=== PATIENT | female | born 1995 | race Caucasian/White ===

== ENCOUNTER → 2020-04-16 15:49 | Outpatient (CLI) | payer OTHER, SELFPAY ==
[2020-04-16 16:10] LABS: Absolute Lymphocyte Count 1.89 X10^3/uL (0.83-4.51); Absolute Neutrophil Count 7.1 X10^3/uL (2.0-7.7); Basophil# 0.05 X10^3/uL; Basophil% 0.5 % (0-1); Eosinophil# 0.03 X10^3/uL; Eosinophils% 0.3 % (0-5); Hematocrit 39.8 % (37-47); Hemoglobin 13.4 g/dL (12.0-15.0); Lymphocyte # 1.89 X10^3/ul (4.0); Lymphocyte % 19.5 % (19-41); Mean Corp Hgb Conc 33.7 g/dL (32-36); Mean Corpuscular Hgb 30.5 pg (27.0-32.0); Mean Corpuscular Volume 90.7 fL (81-99); Mean Platelet Vol. 9.6 fl (6.2-12.0); Monocyte# 0.62 X10^3/uL; Monocyte% 6.4 % (0-10); NRBC Flagged by Analyzer 0 % (0-5); Neutrophil # 7.08 X10^3/uL (2.7-7.7); Platelet Count 337 K/mm3 (150-450); RBC Distribution Width CV 11.9 % (11.6-14.6); RBC Distribution Width SD 39.6 fl (35.1-43.9); Red Blood Count 4.39 M/mm3 (4.2-5.4); White Blood Count 9.7 K/mm3 (4.4-11.0)
[2020-04-17 09:16] LABS: HIV - WCH Non-Reactive (Nonreactive); Hepatitis B Surface Antigen Non-Reactive (Nonreactive); Hepatitis C Antibody Non-Reactive (Nonreactive); Rubella IgG Equiv (Nonreactive); Syphilis Antibodies Non-reactive
[2020-04-20 20:07] LABS: Chlamydia By Nucleic Acid AMP Negative (Negative)
[2020-04-20 20:58] LABS: Gonococcus By Nucleic Acid AMP Negative (Negative)
== END ==
PROVIDERS: Visit Provider Obstetrics & Gynecology
DX: Z34.81 Encounter for supervision of other normal pregnancy, first trimester (principal); Z11.3 Encounter for screening for infections with a predominantly sexual mode of transmission
CPT/HCPCS: 36415; 85025; 86703; 86762; 86803; 87086; 87088; 87340; 87491; 87591

== ENCOUNTER → 2020-08-18 09:11 | Outpatient (CLI) | payer OTHER, MEDICAID, SELFPAY ==
[2020-08-18 11:13] LABS: Hematocrit 34.5 % (37-47); Hemoglobin 11.6 g/dL (12.0-15.0); Mean Corp Hgb Conc 33.6 g/dL (32-36); Mean Corpuscular Hgb 31.2 pg (27.0-32.0); Mean Corpuscular Volume 92.7 fL (81-99); Mean Platelet Vol. 10.5 fl (6.2-12.0); Platelet Count 329 K/mm3 (150-450); Red Blood Count 3.72 M/mm3 (4.2-5.4); White Blood Count 11.2 K/mm3 (4.4-11.0)
[2020-08-18 11:19] LABS: Glucose Challenge Gest 1H 50g 110 mg/dL (70-140)
== END ==
PROVIDERS: Visit Provider Obstetrics & Gynecology
DX: Z34.82 Encounter for supervision of other normal pregnancy, second trimester (principal)
CPT/HCPCS: 36415; 82950; 85027

== ENCOUNTER → 2020-11-09 | Outpatient (CLI) | payer OTHER, MEDICAID, SELFPAY | END | disposition home or self-care (01) | LOC: LABSPEC 16:19 | PROVIDERS: Visit Provider Obstetrics & Gynecology | DX: Z36.85 Encounter for antenatal screening for Streptococcus B (principal) | CPT/HCPCS: 87081 ==

== ENCOUNTER 2020-11-27 08:55 | Inpatient (IN) | payer OTHER, MEDICAID, SELFPAY ==
[2020-11-27] VITALS (32 sets, daily range): BP systolic 97–136; BP diastolic 50–76; PULSE 81–127; TEMP 36.4–37.5; O2SAT 97–100; BMI 25.4
[2020-11-27 08:45] LABS: ROM Internal Control Test YES-OK TO RESULT pt. (Internal QC)
[2020-11-27 08:48] LABS: ROM Patient Test POSITIVE (Negative)
[2020-11-27 09:19] LABS: Absolute Lymphocyte Count 1.95 X10^3/uL (0.83-4.51); Absolute Neutrophil Count 6.9 X10^3/uL (2.0-7.7); Basophil# 0.06 X10^3/uL; Basophil% 0.6 % (0-1); Eosinophil# 0.11 X10^3/uL; Eosinophils% 1.1 % (0-5); Hematocrit 32.8 % (37-47); Hemoglobin 10.6 g/dL (12.0-15.0); Lymphocyte # 1.95 X10^3/ul (0.83-4.51); Lymphocyte % 19.7 % (19-41); Mean Corp Hgb Conc 32.3 g/dL (32-36); Mean Corpuscular Hgb 28.6 pg (27.0-32.0); Mean Corpuscular Volume 88.6 fL (81-99); Mean Platelet Vol. 10.2 fl (6.2-12.0); Monocyte# 0.68 X10^3/uL; Monocyte% 6.9 % (0-10); NRBC Flagged by Analyzer 0 % (0-5); Neutrophil # 6.93 X10^3/uL (2.7-7.7); Neutrophil % 69.8 % (47-70); Platelet Count 380 K/mm3 (150-450); RBC Distribution Width CV 12.9 % (11.6-14.6); White Blood Count 9.9 K/mm3 (4.4-11.0)
[2020-11-27] MEDS: Lactated Ringers 1,000 ML 50 ML IV (11:27)
[2020-11-27] MEDS: Lactated Ringers 500 ML 999 ML IV (12:03)
[2020-11-27] MEDS: Oxytocin 30 units/NS 500 ml 30 UNITS/500 ML IV.SOLN IV (12:05)
--- NOTE | 2020-11-27 12:53 | HP.PCM.OB_ITS ---
HPI - General General Date of Admission: 11/27/20 HPI Narrative 25-year-old G1, P0 at 38/5 weeks, FRANCO 12/06/2020 by LMP, admitted with spontaneous rupture of membranes. Rupture membranes around 06 30 this morning. Reports irregular contractions that are mild. Denies vaginal bleeding, h eadache, vision changes, chest pain, shortness of breath, nausea or vomiting, fevers or chills. Reports movement. complicated by: Rubella equivocal Maternal Data Information Final FRANCO: 12/06/20 Final FRANCO Source: LMP PFSH PFSH Home Medications [id number] [] 1 tab PO DAILY 11/27/20 [History Last Taken Unknown] Allergy/AdvReac Type Severity Reaction Status Date / Time No Known Allergies Allergy Verified 11/27/20 08:46 Social History Smoking Status: Former smoker History Elective abortions Hx Para 0 Spontaneous abortions Hx # Term Pregnancies Ectopic pregnancies Hx # Pregnancies Multiple births # of living children NST FHR Rate Baby A Baseline: 145 Variability:: Moderate Accelerations:: 15 x 15 Decelerations:: None NST Reactive:: Yes FHR Category:: Category I ROS Constitutional Constitutional: Reports systems reviewed and no addt'l complaints, except as documented Eyes Eyes: Reports systems reviewed and no addt'l complaints, except as documented ENT HEENT: Reports systems reviewed and no addt'l complaints, except as documented Cardiovascular Cardiovascular: Reports systems reviewed and no addt'l complaints, except as documented Respiratory/Chest Respiratory/Chest: Reports systems reviewed and no addt'l complaints, except as documented Gastrointestinal Gastrointestinal: Reports systems reviewed and no addt'l complaints, except as documented Genitourinary Genitourinary: Reports systems reviewed and no addt'l complaints, except as documented Musculoskeletal Musculoskeletal: Reports systems reviewed and no addt'l complaints, except as documented Integumentary Integumentary: Reports systems reviewed and no addt'l complaints, except as documented Neurologic Neurologic: Reports systems reviewed and no addt'l complaints, except as documented Psychiatric Psychiatric: Reports systems reviewed and no addt'l complaints, except as documented Endocrine Endocrinology: Reports systems reviewed and no addt'l complaints, except as documented Hematologic/Lymphatic Hematologic/Lymphatic: Reports systems reviewed and no addt'l complaints, except as documented Allergic/Immunologic Allergic/Immunologic: Reports systems reviewed and no addt'l complaints, except as documented Vital Signs Vital Signs Vital Signs: 11/27/20 08:30 11/27/20 09:33 11/27/20 10:35 Temperature 98.2 F 98.1 F Temperature Source Temporal Temporal Pulse Rate 87 99 96 Blood Pressure 116/67 123/59 H 98/54 L BP Systolic 116 123 98 BP Diastolic 67 59 54 Pulse Ox 97 11/27/20 11:34 11/27/20 12:30 11/27/20 12:47 Temperature 98.2 F Temperature Source Temporal Pulse Rate 81 81 98 Blood Pressure 101/55 L 113/63 BP Systolic 101 113 BP Diastolic 55 63 Pulse Ox 98 100 Weight Weight: 71.7 kg Body Mass Index (BMI) 25.4 Physical Exam Const alert, oriented x3 and no apparent distress HEENT normocephalic Head and Scalp: atraumatic Neck full ROM Resp normal respiratory effort and clear to auscultation bilaterally Cardio regular rate and regular rhythm GI normal to inspection, nondistended, normoactive bowel sounds GI Narrative: Gravid Narrative: 3 cm per RN Extremity normal to inspection Skin no rashes or lesions noted Neuro no focal motor deficits and no sensory deficits noted Psych mental status grossly normal Labs Labs Labs: Blood Type A POSITIVE Antibody Screen NEGATIVE Hct 32.8 % (37-47) L Hgb 10.6 g/dL (12.0-15.0) L Syphilis Total Ab Non-reactive Rubella IgG Antibody Equiv (Nonreactive) Hep Bs Antigen Non-Reactive (Nonreactive) Neisseria gonorrhoeae DNA (LUIS ALBERTO) Negative (Negative) HIV 1&2 Antibody Non-Reactive (Nonreactive) Glucose 1 Hr 50 gm 110 mg/dL (70-140) Assessment & Plan (1) Spontaneous rupture of amniotic membranes: PLAN: 25-year-old at 38/5 weeks admitted for spontaneous rupture of membranes. Expectant vaginal delivery. Add Pitocin if no cervical change. GBS negative.
[2020-11-27] MEDS: fentaNYL-bupivacaine (epidural) 100 ML BAG EPIDURAL ×2 (13:03→17:31)
[2020-11-27] MEDS: Lactated Ringers 1,000 ML 200 ML IV (17:31)
[2020-11-27] MEDS: Oxytocin 30 units/NS 500 ml 30 UNITS/500 ML IV.SOLN 334 UNITS IV (18:53)
--- NOTE | 2020-11-27 19:00 | EX.PCM.OBRPT ---
Maternal Data Information Final FRANCO: 12/06/20 Final FRANCO Source: LMP Vaginal Delivery Maternal Presentation Maternal Presentation: Spontaneous Rupture of Membranes Operative Information Date of Procedure: 11/27/20 Pre-Operative Diagnosis: Parrish intrauterine , spontaneous rupture of membranes Post-Operative Diagnosis: Parrish intrauterine , spontaneous rupture of membranes, spontaneous vaginal delivery Surgery / Procedure Performed: Spontaneous Vaginal Delivery Type of Anesthesia: Epidural Findings Description of Procedure: Spontaneous vaginal delivery of viable infant female. 1 nuchal cord, loose, reduced. Baby handed to mom. Cord clamped and cut. Spontaneous delivery of placenta. No lacerations. EBL 300 cc Infant A Gender: Female (1 minute): 8 (5 minute): 9 Complication Complications: None
[2020-11-27] MEDS: Ibuprofen 600 MG Tablet PO (20:15)
[2020-11-28] VITALS (8 sets, daily range): BP systolic 98–110; BP diastolic 52–69; PULSE 82–101; RESP 16–18; TEMP 36.6–36.8
--- NOTE | 2020-11-28 09:16 | PN.OBGYN_ITS ---
Subjective Subjective day 1. Lochia minimal. Having some discomfort which is tolerable. Formula feeding. Objective Data Objective Data Vital Signs: Vital Signs Temp Pulse Resp BP Pulse Ox 97.9 F 85 16 101/64 100 11/28/20 07:54 11/28/20 07:54 11/28/20 07:54 11/28/20 07:54 11/27/20 17:03 Oxygen Delivery Method Room Air Weight: 71.7 kg Body Mass Index (BMI) 25.4 Intake & Output: Intake and Output for Last 24 Hours 11/26/20 11/27/20 11/28/20 23:59 23:59 23:59 Intake Total 2280.10 / 2280.10 Output Total 900 / 900 600 / 600 Balance 1380.10 / 1380.10 -600 / -600 Lab / Micro Data Result Diagrams: 11/27/20 09:00 Labs: Laboratory Results - last 24 hr 11/27/20 09:00: WBC 9.9, RBC 3.70 L, Hgb 10.6 L, Hct 32.8 L, MCV 88.6, MCH 28.6, MCHC 32.3, RDW Std Deviation 42.0, RDW Coeff of Susan 12.9, Plt Count 380, MPV 10.2, Immature Gran % (Auto) 1.900 H, Neut % (Auto) 69.8, Lymph % (Auto) 19.7, [place] % (Auto) 6.9, Eos % (Auto) 1.1, Baso % (Auto) 0.6, Absolute Neuts (auto) 6.9, Absolute Lymphs (auto) 1.95, Nucleated RBC % 0 11/27/20 09:00: Blood Type A POSITIVE, Antibody Screen NEGATIVE Micro: Microbiology 11/27/20 10:45 Nasal Secretion SARS-CoV-2 Antigen (Rapid) - Final Physical Exam Const alert, oriented x3 and no apparent distress HEENT normocephalic Head and Scalp: atraumatic Neck full ROM Resp normal respiratory effort Cardio regular rate GI normal to inspection, nondistended, normoactive bowel sounds GI Narrative: Uterus 2 cm below umbilicus Extremity no pedal edema Neuro no focal motor deficits and no sensory deficits noted Psych mental status grossly normal Assessment & Plan (1) Vaginal delivery: PLAN: day 1 status post spontaneous vaginal delivery. Formula feeding. Rubella equivocal, MMR vaccine recommended. Home tomorrow.
[2020-11-28] MEDS: Ibuprofen 600 MG Tablet PO (11:57)
[2020-11-28] MEDS: Acetaminophen 500 MG Tablet 1000 MG PO (16:07)
[2020-11-29 02:09] VITALS: BP 119/64; PULSE 92; RESP 18
[2020-11-29 08:35] VITALS: BP 114/62; PULSE 92; RESP 16; TEMP 36.8
--- NOTE | 2020-11-29 09:40 | PCM.PN.OB ---
Subjective Subjective day 2. Feeling well. Voiding spontaneously with less discomfort. Lochia minimal. Objective Data Objective Data Vital Signs: Vital Signs Temp Pulse Resp BP Pulse Ox 98.3 F 92 16 114/62 100 11/29/20 08:35 11/29/20 08:35 11/29/20 08:35 11/29/20 08:35 11/27/20 17:03 Oxygen Delivery Method Room Air Weight: 71.7 kg Body Mass Index (BMI) 25.4 Intake & Output: Intake and Output for Last 24 Hours 11/27/20 11/28/20 11/29/20 23:59 23:59 23:59 Intake Total 2280.10 / 2280.10 Output Total 900 / 900 600 / 600 Balance 1380.10 / 1380.10 -600 / -600 Lab / Micro Data Result Diagrams: 11/27/20 09:00 Micro: Microbiology 11/27/20 10:45 Nasal Secretion SARS-CoV-2 Antigen (Rapid) - Final Physical Exam Const alert, oriented x3 and no apparent distress HEENT normocephalic Head and Scalp: atraumatic Neck full ROM Resp normal respiratory effort Cardio regular rate GI normal to inspection, nondistended, normoactive bowel sounds GI Narrative: Uterus 2 cm below umbilicus Back/Spine normal ROM Extremity normal to inspection Extremity Narrative: Minimal pedal edema Neuro no focal motor deficits and no sensory deficits noted Psych mental status grossly normal and affect normal Assessment & Plan (1) Vaginal delivery: PLAN: day 2 status post spontaneous vaginal delivery. Formula feeding. Feeling well. Discharge home today with 2-week telehealth appointment in 6-week visit.
--- NOTE | 2020-11-29 09:42 | PCM.DC ---
Discharge Instructions Diet Discharge Diet: No restrictions Activity Discharge Activity: Return to Normal Activity and May Shower May resume sexual activity in: 4-6 weeks Weight Bearing Status: Weight bearing as tolerated Lifting Restrictions: No greater than 25 pounds Dressing / Incision Call your doctor if you observe: Fever of 101 or Higher, Change in Color, Inability to urinate, Using more than 1 pad per hour, Shortness of breath, Dizziness, Swelling in the ankles, Chest pain and Calf discomfort Follow Up Care Please Follow Up With: Dudley Bowles MD When: 2-week telehealth appointment in 6-week visit Test Results: Test results from this visit will be discussed in further detail at your follow-up appointment, if applicable. Discharge Plan Admission Admit Date/Time: 11/27/20 08:55 Attending Provider: Zoe Bowles Discharge Orders/Prescriptions Prescriptions: No Action 1 mg Tablet 1 tab PO DAILY RF: 0 Disposition Disposition (needs filled in before D/C Order can be placed): Home, Self Care
== END 2020-11-29 10:50 | disposition home or self-care (01) | DRG 807 ==
PROVIDERS: Admitting Provider Student in an Organized Health Care Education/Training Program; Referring Provider Student in an Organized Health Care Education/Training Program; Visit Provider Student in an Organized Health Care Education/Training Program
DX: O42.02 Full-term premature rupture of membranes, onset of labor within 24 hours of rupture (principal); Z37.0 Single live birth; O69.81X0 Labor and delivery complicated by cord around neck, without compression, not applicable or unspecified; Z3A.38 38 weeks gestation of pregnancy; Z87.891 Personal history of nicotine dependence
CPT/HCPCS: 59025; 59050; 84112; 85025; 86850; 86900; 86901; 87426; 99218; J7120; G0378

== ENCOUNTER → 2021-08-06 | Outpatient (CLI) | payer OTHER, MEDICAID, SELFPAY ==
[2021-08-10 15:07] LABS: HPV Reflexed? NOT INDICATED
== END | disposition home or self-care (01) ==
LOC: LABSPEC 10:44
PROVIDERS: Visit Provider Obstetrics & Gynecology
DX: Z12.4 Encounter for screening for malignant neoplasm of cervix (principal)
CPT/HCPCS: 88175; G0145

== ENCOUNTER 2024-08-05 07:15 | Inpatient (IN) | payer BC, SELFPAY ==
[2024-08-05] VITALS (60 sets, daily range): BP systolic 92–139; BP diastolic 51–74; PULSE 68–134; RESP 14–18; TEMP 36.4–37.7; O2SAT 96–100; BMI 29.6
--- OUTSIDE RECORDS SUMMARY | 2024-08-05 07:27 | XMS RPT_ITS | CCD ---
Author Organization [facility] Care Team Providers Care Policy Loan Calculator Name Role Phone Lilo COLLIER, Karina Richter Primary Care Provider [phone] NO, PHYSICIAN Primary Care Unavailable CHARLENE CORNELL Attending Unavailable Care Physician, No Primary Primary Care Unava ilable Virginia Valdovinos Attending Unavailable Virginia Valdovinos Admitting Unavailable LILO, KARINA RICHTER Primary Care Unavailable WISSHAUNA, V[place] Referring Unavailable MADELYN JACQUES Attending Unavailable LILO, KARINA RICHTER Primary Care Unavailable LESLYE RODRIGUEZ Referring Unavail able NAGY, KARINA RICHTER Primary Care Unavailable LESLYE RODRIGUEZ Attending Unavail able KARINA NAGY Primary Care Unavailable LACEY YBARRA Attending Unavailable LILO, KARINA RICHTER Primary Care Unavailable MELANIE, [place] Attending Unavailable KARINA NAGY Primary Care Unavailable MADELYN JACQUES Referring Unavailable KARINA NAGY Primary Care Unavailable MADELYN JACQUES Attending Unavailable [place] VALDOVINOS Attending Unavailable KARINA NAGY Primary Care Unavailable NAGY, KARINA RICHTER Primary Care Unavailable NAGY, KARINA RICHTER Primary Care Unavailable MADELYN JACQUES Attending Unavailable MELANIE, VIR[place] Referring Unavailable KARINA NAGY Primary Care Unavailable HAPABLO, SHANNA Referring Unavailable NAGY, KARINA RICHTER Primary Care Unavailable WISWELL, VIR[place]IA Referring Unavailable NAGYKARINA Primary Care Unavailable LACEY YBARRA Attending Unavailable LILO, KARINA RICHTER Primary Care Unavailable MADELYN JACQUES Referring Unavailable NAGY, KARINA RICHTER Primary Care Unavailable LACEY YBARRA Attending Unavailable KERRIE, SHANNA Referring Unavailable NAGY, KARINA RICHTER Primary Care Unavailable HAPABLO, SHANNA Referring Unavailable NAGYKARINA LÓPEZ Primary Care Unavailable WISSHAUNA, VIR[place] Attending Unavailable LILO, KARINA RICHTER Primary Care Unavailable NAGY, KARINA NEELAM Primary Care Unavailable HAPABLO, SHANNA Attending Unavailable DEBRA, VINCENT L Referring Unavailable NAGY, KARINA RICHTER Primary Care Unavailable V[place] VALDOVINOS Referring Unavailable KARINA NAGY Primary Care Unavailable LACEY YBARRA Referring Unavailable MICHELLE GOULD Attending Unavailable KARINA NAGY Primary Care Unavailable LACEY YBARRA Referring Unavailable KARINA NAGY Primary Care Unavailable V[place] VALDOVINOS Attending Unavailable KARINA NAGY Primary Care Unavailable Medications Current Medications Medication Drug Class(es) Dates Sig (Normalized) Sig (Original) Acetaminophen (8 sources) acetaminophen (TYLENOL 8 HOUR ORAL) Take by mouth as needed. Active aspirin 81 mg delayed release oral tablet (20 sources) Platelet Aggregation Inhibitor, Nonsteroidal Anti-inflammatory Drug Start: 12-28-2023 take 1 tablet by mouth once daily aspirin, enteric coated (ECOTRIN LOW STRENGTH) 81 mg EC tablet Indications: Encounter for supervision of other normal in first trimester (HCC) Take 1 tablet by mouth once daily. 90 tablet 3 12/28/2023 Active Famotidine (11 sources) Histamine-2 Receptor Antagonist famotidine (PEPCID ORAL) Take by mouth. Active Cffdekkl-Kz-Bix-Fe- FA ( VITAMIN) tab (20 sources) take 1 tablet by mouth once Kwizwzde-Br-Dlo-Fe- FA ( VITAMIN) tab Take 1 tablet by mouth. Active Xdtqlnfp-Yfp-Au-Fa () 1 mg Tablet (1 source) Start: 11-27-2020 take 1 tablet by mouth once daily Uuvisyul-Ljj-Bt-Fa () 1 mg Tablet Active 1 TABLET PO DAILY November 27, 2020 12:00am Completed/Discontinued Medications Medication Drug Class(es) Dates Sig (Normalized) Sig (Original) Ethinyl Estradiol / Levonorgestrel (2 sources) Progestin, Estrogen, Progestin-containi ng Intrauterine Device Start: 08-02-2013 End: 12-28-2023 take 1 tablet by mouth once daily Levonorgestrel-Ethi nyl Estrad (AVIANE) 0.1mg - 20mcg per tablet Indications: Counseling for control, oral contraceptives Take 1 tablet by mouth once daily. 1 Package 2 08/02/2013 12/28/2023 Discontinued Start: 08-02-2013 take 1 tablet by jj once daily Levonorgestrel-Ethinyl Estrad (AVIANE) 0.1mg - 20mcg per tablet Indications: Counseling for control, oral contraceptives Take 1 tablet by mouth once daily. 1 Package 2 08/02/2013 Active Problems Active Problems Problem Classification Problem Date Documented Da te Episodic/Chronic Anxiety disorders (1 source) Other specified anxiety disorders; Translations: [Depression with anxiety] Onset: 12-28-2023 Chronic Diabetes or abnormal glucose tolerance complicating ; childbirth; or the puerperium (15 sources) Abnormal glucose level; Translations: [Abnormal glucose complicating ] Onset: 06-03-2024 06-03-2024 Episodic Immunizations and screening for infectious disease (1 source) Vaccination needed; Translations: [Encounter for immunization] 05-20-2024 Episodic Nonspecific chest pain (2 sources) Chest pain, unspecified; Translations: [Chest pain, unspecified] Onset: 05-24-2024 Episodic Other complications of (1 source) Pruritus of ; Translations: [Diseases of the skin and subcutaneous tissue complicating , second trimester] 03-22-2024 Episodic Other complications of (1 source) Pruritic urticarial papules and plaques of (PUPPP); Translations: [Other specified complications of , unspecified as to episode of care or not applicable] 03-22-2024 Episodic Other complications of (1 source) Other specified related conditions, third trimester; Translations: [Heartburn during in third trimester (HCC)] Onset: 06-17-2024 Episodic Other gastrointestinal disorders (1 source) Heartburn; Translations: [Heartburn during in third trimester (HCC)] Onset: 06-17-2024 Episodic Other screening for suspected conditions (not mental disorders or infectious disease) (10 sources) Cancer cervix screening status; Translations: [Encounter for screening for malignant neoplasm of cervix] Onset: 04-02-2024 12-28-2023 Episodic Residual codes; unclassified (1 source) Gestation period, 7 weeks; Translations: [Less than 8 weeks gestation of ] 12-28-2023 Episodic Residual codes; unclassified (2 sources) Gestation period, 13 weeks; Translations: [13 weeks gestation of ] 02-07-2024 Episodic Residual codes; unclassified (1 source) Gestation period, 17 weeks; Translations: [17 weeks gestation of ] 03-06-2024 Episodic Residual codes; unclassified (1 source) Gestation period, 19 weeks; Translations: [19 weeks gestation of ] 03-22-2024 Episodic Residual codes; unclassified (2 sources) Gestation period, 21 weeks; Translations: [21 weeks gestation of ] 04-02-2024 Episodic Residual codes; unclassified (1 source) Gestation period, 25 weeks; Translations: [25 weeks gestation of ] 04-30-2024 Episodic Residual codes; unclassified (3 sources) Gestation period, 28 weeks; Translations: [28 weeks gestation of ] 05-20-2024 Episodic Residual codes; unclassified (2 sources) 29 weeks gestation of ; Translations: [29 weeks gestation of ] Onset: 05-24-2024 Episodic Residual codes; unclassified (1 source) Gestation period, 30 weeks; Translations: [30 weeks gestation of ] 06-03-2024 Episodic Residual codes; unclassified (1 source) Gestation period, 32 weeks; Translations: [32 weeks gestation of ] 06-17-2024 Episodic Residual codes; unclassified (1 source) Gestation period, 31 weeks; Translations: [31 weeks gestation of ] 06-17-2024 Episodic Residual codes; unclassified (2 sources) Gestation period, 34 weeks; Translations: [34 weeks gestation of ] 07-01-2024 Episodic Residual codes; unclassified (2 sources) Gestation period, 36 weeks; Translations: [36 weeks gestation of ] 07-16-2024 Episodic Residual codes; unclassified (1 source) Gestation period, 37 weeks; Translations: [37 weeks gestation of ] 07-25-2024 Episodic Residual codes; unclassified (1 source) Gestation period, 38 weeks; Translations: [38 weeks gestation of ] 07-29-2024 Episodic Residual codes; unclassified (1 source) 38 weeks gestation of ; Translations: [38 weeks gestation of (HCC)] Onset: 07-29-2024 Episodic Residual codes; unclassified (1 source) 37 weeks gestation of ; Translations: [37 weeks gestation of (HCC)] Onset: 07-22-2024 Episodic Residual codes; unclassified (1 source) 34 weeks gestation of ; Translations: [34 weeks gestation of (HCC)] Onset: 07-22-2024 Episodic Residual codes; unclassified (1 source) 36 weeks gestation of ; Translations: [36 weeks gestation of ([facility])] Onset: 07-16-2024 Episodic Residual codes; unclassified (1 source) 31 weeks gestation of ; Translations: [31 weeks gestation of ([facility])] Onset: 06-17-2024 Episodic Residual codes; unclassified (1 source) 32 weeks gestation of ; Translations: [32 weeks gestation of ([facility])] Onset: 06-17-2024 Episodic Residual codes; unclassified (1 source) 25 weeks gestation of ; Translations: [25 weeks gestation of ([facility])] Onset: 05-20-2024 Episodic Spondylosis; intervertebral disc disorders; other back problems (2 sources) Dorsalgia, unspecified; Translations: [Dorsalgia, unspecified] Onset: 05-24-2024 Episodic Umbilical cord complication (20 sources) Velamentous insertion of umbilical cord; Translations: [Velamentous insertion of umbilical cord, second trimester] Onset: 04-02-2024 04-02-2024 Episodic Unclassified (20 sources) [facility] Education - COMMON Onset: 12-28-2023 12-28-2023 Unclassified (20 sources) Education - [place] Onset: 12-28-2023 12-28-2023 Unclassified (1 source) Other specified diseases and conditions complicating ; Translations: [Other specified diseases and conditions complicating ] Onset: 05-24-2024 Past or Other Problems Problem Classification Problem Date Documented Date Episodic/Chronic Other complications of (20 sources) Heartburn; Translations: [Other specified related conditions, second trimester] Onset: 03-06-2024 03-06-2024 Episodic Other complications of (20 sources) Rubella non-immune; Translations: [Supervision of other high risk pregnancies, unspecified trimester] Onset: 02-08-2024 02-08-2024 Episodic Other complications of (1 source) Diseases of the skin and subcutaneous tissue complicating , second trimester; Translations: [Pruritus of in second trimester] Onset: 03-22-2024 Episodic Other inflammatory condition of skin (1 source) Pruritus, unspecified; Translations: [Pruritus of in second trimester] Onset: 03-22-2024 Episodic Other and delivery including normal (20 sources) Vaginal delivery; Translations: [Encounter for full-term uncomplicated delivery] Onset: 12-28-2023 12-28-2023 Episodic Residual codes; unclassified (1 source) 21 weeks gestation of ; Translations: [21 weeks gestation of ] Onset: 04-02-2024 Episodic Residual codes; unclassified (1 source) Less than 8 weeks gestation of ; Translations: [7 weeks gestation of ] Onset: 02-07-2024 Episodic Screening and history of mental health and substance abuse codes (20 sources) H/O: anxiety state; Translations: [Personal history of other mental and behavioral disorders] Onset: 11-22-2018 11-22-2018 Episodic Unclassified (1 source) Spontaneous rupture of membranes; Translations: [Spontaneous rupture of amniotic membranes] Unclassified (1 source) Other specified diseases and conditions complicating ; Translations: [Other specified diseases and conditions complicating ] Onset: 05-24-2024 Results Test Name Value Interpretation Reference Range Facil ity URINE OB DIP B/Oon 5 Glucose Ql (U) Negative Neg mg/dL [facility] Interpretation and review of laboratory results Normal [facility] Protein.monoclonal (U) [Mass/Vol] Negative Neg mg/dL [facility] URINE OB DIP B/Oon 5 Glucose Ql (U) Negative Neg mg/dL [facility] Interpretation and review of laboratory results Normal [facility] Protein.monoclonal (U) [Mass/Vol] Negative Neg mg/dL [facility] Examination level ultrasound on 07-16-2024 [facility] Radiology Study observation (narrative) [facility] ROUTINE, GROUP B ST REPTOCOCCUS BY PCRon 07-16-2024 ROUTINE, GROUP B STREPTOCOCCUS BY PCR Not detected Normal [facility] Comment on above: Performed By: #### L [id number] #### [facility] CLIA [id number] [address] [place] [address] [place] URINE OB DIP B/Oon 5 Glucose Ql (U) Negative Neg mg/dL [facility] Interpretation and review of laboratory results Normal [facility] Protein.monoclonal (U) [Mass/Vol] Negative Neg mg/dL [facility] CNPNon 07-01-2024 CNPN Telephone (OBGYWM) MAURICIO OLIVER ([id number]) 1995 F Date Time Provider Department 07/01/24 KERRIESHANNA OBCARRIEWKody During your visit today, we recorded the following information about you: Bhakti Lentz RN 07/01/2024 10:32 AM Signed Written order for breast pump received from [employer]. Placed in [facility] inbox for signature. SARAH Jackson Trisha, RN 07/01/2024 2:14 PM Signed Order signed and faxed. Ashley Ontiveros RN Allergies As of Date: 07/01/2024 (No Known Allergies) Date Reviewed: 07/01/2024 Reviewed by: Lucy Dumont MA - Fully Assessed Reason for Visit: Breast pump [Other] Prescriptions as of 07/01/2024 - acetaminophen (TYLENOL 8 HOUR ORAL) Take by mouth as needed. - famotidine (PEPCID ORAL) Take by mouth. - aspirin, enteric coated (ECOTRIN LOW STRENGTH) 81 mg EC tablet Take 1 tablet by mouth once daily. - Gyouorss-Tr-Yyr-Fe-FA ( VITAMIN) tab Take 1 tablet by mouth. Problem List As Of Date 07/01/2024 Noted Resolved History of anxiety [Z86.59] 11/22/2018 Supervision of normal [Z34.90] 12/28/2023 History of depression [Z86.59] 12/28/2023 Rubella non-immune status, antepartum [O09.899,*02/08/2024 Heartburn during in second trimester *03/06/2024 Velamentous insertion of umbilical cord in seco*04/02/2024 Abnormal glucose complicating (HCC) [*06/03/2024 Encounter Status:Closed by ASHLEY ONTIVEROS on 5/12/25 Normal [facility] Examination level ultrasound on 06-17-2024 [facility] Radiology Study observation (narrative) [facility] GLUCOSE GESTATIONAL, 1 HOURo n 06-01-2024 Glucose 1 Hr post Unsp challenge [Mass/Vol] 169 mg/dL Normal 74-179 [facility] Comment on above: Order Comment: Speci herlinda Type: FLUID SPECIMEN Ordering Facility: [facility] Address: [address] [place] [address] Result Comment: [facility] Congress of Obstetricians and Gynecologists (Naren/Elizabethan) guidelines state gestational diabetes mellitus is present when 2 or more of the plasma glucose concentrations meet or exceed the following levels: fastin mg/dl, 1 hr: 180 mg/dl, 2 hr: 155 mg/dl, and 3 hr: 140 mg/dl. Performed By: #### L [id number] #### [facility] CLIA [id number] [address] [place] [address] [place] GLUCOSE GESTATIONAL, 2 HOURo n 06-01-2024 Glucose 2 Hr post Unsp challenge [Mass/Vol] 141 mg/dL Normal 74-154 [facility] Comment on above: Order Comment: Speci men Type: BLOOD SPECIMEN Ordering Facility: [facility] Address: [address] [place] [address] Result Comment: [facility] Congress of Obstetricians and Gynecologists (Naren/Paula) guidelines state gestational diabetes mellitus is present when 2 or more of the plasma glucose concentrations meet or exceed the following levels: fastin mg/dl, 1 hr: 180 mg/dl, 2 hr: 155 mg/dl, and 3 hr: 140 mg/dl. Performed By: #### G [id number] #### [facility] CLIA [id number] [address] [place] [address] [place] GLUCOSE GESTATIONAL, 3 HOURo n 06-01-2024 Glucose 3 Hr post Unsp challenge [Mass/Vol] 63 mg/dL Low 74-139 [facility] Comment on above: Order Comment: Speci men Type: BLOOD SPECIMEN Ordering Facility: [facility] Address: [address] [place] [address] Result Comment: [facility] Congress of Obstetricians and Gynecologists (Naren/Paula) guidelines state gestational diabetes mellitus is present when 2 or more of the plasma glucose concentrations meet or exceed the following levels: fastin mg/dl, 1 hr: 180 mg/dl, 2 hr: 155 mg/dl, and 3 hr: 140 mg/dl. Performed By: #### T SPN #### [facility] CLIA [id number] [address] [facility] [address] [place] GLUCOSE GESTATIONAL, FASTING on 06-01-2024 Glucose post fast [Mass/Vol] 86 mg/dL Normal 74-94 [facility] Comment on above: Order Comment: Speci men Type: BLOOD SPECIMENOrdering Facility: [facility] Address: [address] [place] [address] Result Comment: [facility] Congress of Obstetricians and Gynecologists (Naren/Paula) guidelines state gestational diabetes mellitus is present when 2 or more of the plasma glucose concentrations meet or exceed the following levels: fastin mg/dl, 1 hr: 180 mg/dl, 2 hr: 155 mg/dl, and 3 hr: 140 mg/dl. Performed By: #### G TGSTF ####[facility] [id number] [facility] [address] [place] ED Prov Noteon 05-24-2024 ED Prov Note [place] [facility] Physician Note: NAME: Mauricio Oliver 29 y.o. CSN: [id number] PCP: No, Physician ED Course / Medical Decision Making: Patient comes in with chest pain and upper back pain. This started tonight. Pain is slightly pleuritic but comes and goes. She started googling things and decided to come to the ER. She is 29 weeks . Her oxygen saturation is at 100% on room air. She has no family history of blood clots. She has no pain in her legs or swelling. She denies any hemoptysis. Her Wells PE score is 4.5. This puts patient at a moderate risk for PE. Patient was told since she is 29 weeks she would have to sign a waiver since this is exposure to radiation to her fetus. She knows that we would shield her abdomen. Patient wanted to think about it and talk to her . Patient talked to her and decided against having the CTA chest. She understands that the only way we can rule out blood clot is to do the CTA chest. Patient is alert and oriented capable making informed decision about her health care. Patient still decided against having CTA of the chest. She understands that her Wells PE score puts her at moderate risk for possible PE. Her pain is not reproducible. She denied any fall or injury. Patient was discharged to follow-up with her primary doctor and [employer]. I did stress to her if she has worsening symptoms that she would need to come back to the ER and definitely have the CTA chest to rule out PE. I did not feel that this was labor pain given the pain is upper back and upper chest. Medical Decision Making Amount and/or Complexity of Data Reviewed Independent Historian: Details: Patient gave history Risk Risk Details: Patient came in for mainly pain in the upper back region. She has slight chest discomfort at times. And occasional shortness of breath. She is 29 weeks . Oxygen saturation is 100%. Her vital signs are normal except for a mildly elevated heart rate of 105. Patient does appear anxious. She has no pain in her legs or swelling. She denies any recent long trips or surgeries. She has no hemoptysis. She denies any family history of blood clots. Her Wells PE score is 4.5. Given her heart rate is elevated and PE diagnosis is equally likely. This puts her at moderate risk for PE. I did tell patient because she is she would need to sign a waiver since it is radiation exposure to her and her fetus. I told her radiation exposure is less problematic for her since she is in third trimester. Patient talked with her partner. And she decided she does not want CTA chest. She understands this is only way we can rule out pulmonary embolism. She understands she has risk factor given that she is . And her Wells PE score is 4.5. Patient is alert and oriented make informed decision about her health care. Patient understands PE can be fatal. Given her young age I do not feel cardiac workup is indicated. She had no cough or fever I doubt pneumonia. She has no abdominal pain or vaginal bleeding or discharge. I do not feel blood work or urine is indicated. Clinical Impression: 1. Upper back pain 2. 29 weeks gestation of 3. Chest pain during Disposition: Patient is being discharged to home History: Chief Complaint: Back Pain and Chest Pain HPI: The history was obtained from the patient. She is a 29 y.o. female who presents with a chief complaint of Back Pain and Chest Pain. HPI patient came in with an acute onset of some chest discomfort into her back. This happened tonight. She has slight shortness of breath at times. She is 29 weeks . She denies any recent long trips or surgeries. She has no pain in her legs or swelling. Patient states the pain comes and goes. When I evaluated patient she was not having any pain. Patient denies any fall or injury. She has no abdominal pain or vaginal bleeding. She did not talk to her [employer] prior to coming to the ER she is followed with [facility] at [facility]. She did not take anything for discomfort. Patient denies any fall or injury. Pain is not worse with movement. Patient denies hemoptysis. Patient denies urinary symptoms PMHx: Past Medical History: Diagnosis Date Known health problems: none PMSx: History reviewed. No pertinent surgical history. FAM. Hx: History reviewed. No pertinent family history. SOC. Hx: Social History [1] MEDs: Previous Medications Medication Sig vitamin with Ca-Iron-FA 27-1 mg Tab Take 1 (one) tablet by mouth daily . ALL: Allergies[2] ROS: Review of Systems Constitutional: Negative. HENT: Negative. Eyes: Positive for discharge. Respiratory: Positive for shortness of breath. Negative for apnea, cough, choking, chest tightness, wheezing and stridor. Slight pleuritic chest pain Cardiovascular: Positive for chest pain. Negative for palpitations and leg swelling. Gastrointesti (more content not included)... Normal [facility] CBC W Auto Differential pane l (Bld)on 05-20-2024 Basophils (Bld) [#/Vol] 0.06 10*3/uL Normal <0.11 [facility] Comment on above: Order Comment: Speci men Type: BLOOD SPECIMEN Ordering Facility: [facility] Address: [address] [place] [address] Performed By: #### T SPN #### [facility] CLIA [id number] [address] [place] [address] [place] Basophils/100 WBC (Bld) 0.6 % Normal [facility] Comment on above: Order Comment: Speci men Type: BLOOD SPECIMEN Ordering Facility: [facility] Address: [address] [place] [address] Performed By: #### T SPN #### [facility] CLIA [id number] [address] [place] [address] [place] Differential cell count method Nom (Bld) Auto Normal [facility] Comment on above: Order Comment: Speci men Type: BLOOD SPECIMEN Ordering Facility: [facility] Address: [address] [place] [address] Performed By: #### T SPN #### [facility] CLIA [id number] [address] [place] [address] [place] Eosinophils (Bld) [#/Vol] 0.07 10*3/uL Normal <0.46 [facility] Comment on above: Order Comment: Speci men Type: BLOOD SPECIMEN Ordering Facility: [facility] Address: [address] [place] [address] Performed By: #### T SPN #### [facility] CLIA [id number] [address] [place] [address] [place] Eosinophils/100 WBC (Bld) 0.6 % Normal [facility] Comment on above: Order Comment: Speci men Type: BLOOD SPECIMEN Ordering Facility: [facility] Address: [address] [place] [address] Performed By: #### T SPN #### [facility] CLIA [id number] [address] [place] [address] [place] Erythrocyte distribution width (RBC) [Ratio] 13.4 % Normal 11.5-15.0 [facility] [facility] Comment on [facility]: Order Comment: Speci men Type: BLOOD SPECIMEN Ordering Facility: [facility] Address: [address] [place] [address] Performed By: #### T SPN #### [facility] CLIA [id number] [address] [place] [address] [place] Hematocrit (Bld) [Volume fraction] 33.3 % Low 36.0-46.0 [facility] Comment on above: Order Comment: Speci men Type: BLOOD SPECIMEN Ordering Facility: [facility] Address: [address] [place] [address] Performed By: #### T SPN #### [facility] CLIA [id number] [address] [place] [address] [place] Hemoglobin (Bld) [Mass/Vol] 11.5 g/dL Normal 11.5-15.5 [facility] Comment on above: Order Comment: Speci men Type: BLOOD SPECIMEN Ordering Facility: [facility] Address: [address] [place] [address] Performed By: #### T SPN #### [facility] CLIA [id number] [address] [place] [address] [place] Immature granulocytes (Bld) [#/Vol] 0.23 10*3/uL High <0.10 [facility] Comment on above: Order Comment: Speci men Type: BLOOD SPECIMEN Ordering Facility: [facility] Address: [address] [place] [address] Performed By: #### T SPN #### [facility] CLIA [id number] [address] [place] [address] [place] Immature granulocytes/100 WBC (Bld) 2.1 % Normal [facility] Comment on above: Order Comment: Speci men Type: BLOOD SPECIMEN Ordering Facility: [facility] Address: [address] [place] [address] Performed By: #### T SPN #### [facility] CLIA [id number] [address] [place] [address] [place] Lymphocytes (Bld) [#/Vol] 1.91 10*3/uL Normal 1.00-4.00 [facility] Comment on above: Order Comment: Speci men Type: BLOOD SPECIMEN Ordering Facility: [facility] Address: [address] [place] [address] Performed By: #### T SPN #### [facility] CLIA [id number] [address] [place] [address] [place] Lymphocytes/100 WBC (Bld) 17.6 % Normal [facility] Comment on above: Order Comment: Speci men Type: BLOOD SPECIMEN Ordering Facility: [facility] Address: [address] [place] [address] Performed By: #### T SPN #### [facility] CLIA [id number] [address] [place] [address] [place] MCH (RBC) [Entitic mass] 31.2 pg Normal 26.0-34.0 [facility] Comment on above: Order Comment: Speci men Type: BLOOD SPECIMEN Ordering Facility: [facility] Address: [address] [place] [address] Performed By: #### T SPN #### [facility] CLIA [id number] [address] [place] [address] [place] MCHC (RBC) [Mass/Vol] 34.5 g/dL Normal 30.5-36.0 [facility] Comment on above: Order Comment: Speci men Type: BLOOD SPECIMEN Ordering Facility: [facility] Address: [address] [place] [address] Performed By: #### T SPN #### [facility] CLIA [id number] [address] [place] [address] [place] MCV (RBC) [Entitic vol] 90.2 fL Normal 80.0-100.0 [facility] Comment on above: Order Comment: Speci men Type: BLOOD SPECIMEN Ordering Facility: [facility] Address: [address] [place] [address] Performed By: #### T SPN #### [facility] CLIA [id number] [address] [place] [address] [place] Monocytes (Bld) [#/Vol] 0.57 10*3/uL Normal <0.87 [facility] Comment on above: Order Comment: Speci men Type: BLOOD SPECIMEN Ordering Facility: [facility] Address: [address] [place] [address] Performed By: #### T SPN #### [facility] CLIA [id number] [address] [place] [address] [place] Monocytes/100 WBC (Bld) 5.2 % Normal [facility] Comment on above: Order Comment: Speci men Type: BLOOD SPECIMEN Ordering Facility: [facility] Address: [address] [place] [address] Performed By: #### T SPN #### [facility] CLIA [id number] [address] [place] [address] [place] Neutrophils (Bld) [#/Vol] 8.04 10*3/uL High 1.45-7.50 [facility] Comment on above: Order Comment: Speci men Type: BLOOD SPECIMEN Ordering Facility: [facility] Address: [address] [place] [address] Performed By: #### T SPN #### [facility] CLIA [id number] [address] [place] [address] [place] Neutrophils/100 WBC (Bld) 73.9 % Normal [facility] Comment on above: Order Comment: Speci men Type: BLOOD SPECIMEN Ordering Facility: [facility] Address: [address] [place] [address] Performed By: #### T SPN #### [facility] CLIA [id number] [address] [place] [address] [place] Nucleated RBC (Bld) [#/Vol] 10*3/uL Normal <0.01 [facility] Comment on above: Order Comment: Speci men Type: BLOOD SPECIMEN Ordering Facility: [facility] Address: [address] [place] [address] Performed By: #### T SPN #### [facility] CLIA [id number] [address] [place] [address] [place] Nucleated RBC/100 WBC (Bld) [Ratio] 0.0 /100 WBC Normal [facility] Comment on above: Order Comment: Speci men Type: BLOOD SPECIMEN Ordering Facility: [facility] Address: [address] [place] [address] Performed By: #### T SPN #### [facility] CLIA [id number] [address] [place] [address] [place] Platelet mean volume (Bld) [Entitic vol] 10.0 fL Normal 9.0-12.7 [facility] Comment on above: Order Comment: Speci men Type: BLOOD SPECIMEN Ordering Facility: [facility] Address: [address] [place] [address] Performed By: #### T SPN #### [facility] CLIA [id number] [address] [place] [address] [place] Platelets (Bld) [#/Vol] 310 10*3/uL Normal 150-400 [facility] Comment on above: Order Comment: Speci men Type: BLOOD SPECIMEN Ordering Facility: [facility] Address: [address] [place] [address] Performed By: #### T SPN #### [facility] CLIA [id number] [address] [place] [address] [place] RBC (Bld) [#/Vol] 3.69 10*6/uL Low 3.90-5.20 [facility] Comment on above: Order Comment: Speci men Type: BLOOD SPECIMEN Ordering Facility: [facility] Address: [address] [place] [address] Performed By: #### T SPN #### [facility] CLIA [id number] [address] [place] [address] [place] WBC (Bld) [#/Vol] 10.88 10*3/uL Normal 3.70-11.00 [facility] Comment on above: Order Comment: Speci men Type: BLOOD SPECIMEN Ordering Facility: [facility] Address: [address] [place] [address] Performed By: #### T SPN #### [facility] CLIA [id number] [address] [place] [address] [place] Examination level ultrasound on 05-20-2024 [facility] Radiology Study observation (narrative) [facility] GESTATIONAL GLUCOSE SCREEN, 1-HOUR, 50 GRAM, NON-FASTINGon 05-20-2024 Glucose [Mass/Vol] 162 mg/dL High 74-[address] [facility] Comment on above: Order Comment: Speci men Type: BLOOD SPECIMEN Ordering Facility: [facility] Address: [address] [place] [address] Result Comment: [facility] Congress of Obstetricians and Gynecologists (Sneed/Paula) guidelines state a gestational diabetes mellitus positive screen is made, in women not previously diagnosed with overt diabetes, when the 1 hr plasma glucose level is equal to or above 140 mg/dL. The [facility] Patient'S Librarian and [facility] [place] recommends a 135 mg/dL cutoff. Performed By: #### T SPN #### [facility] CLIA [id number] [address] [place] [address] [place] Reagin and Treponema pallidu m IgG and IgM [Interp]on 05-20-2024 T. pallidum IgG+IgM IA Ql (S) Non-Reactive Normal Nonreactive [facility] Comment on above: Order Comment: Speci men Type: FLUID SPECIMEN Ordering Facility: [facility] Address: [address] [place] [address] Performed By: #### L [id number] #### [facility] CLIA [id number] [address] [place] [address] [place] Reagin+T pallidum IgG+IgM Se rPl-Impon 05-20-2024 Reagin and Treponema pallidum IgG and IgM [Interp] Cannot exclude recent Treponemal infection if specimen collected within 7-10 days after appearance of suspect lesions or 2-3 weeks after an exposure. Clinical correlation is required. Normal [facility] Comment on above: Order Comment: Speci men Type: FLUID SPECIMEN Ordering Facility: [facility] Address: [address] [place] [address] Performed By: #### L [id number] #### [facility] CLIA [id number] [address] [place] [address] Examination level ultrasound on 04-02-2024 Indication Standard anatomic survey Impression REMOTE READ The patient is referred for a standard anatomic survey. - Single, live, intrauterine . - biometry is consistent with the established gestational age. - No malformations were visualized on a complete standard anatomic survey. - The amniotic fluid volume is normal amount. - The placenta is posterior, fundal. The PCI appears velamentous. - The Transvaginal cervical length measures 38.9 mm with no evidence of funneling or other dynamic changes. - Not all structural malformations can be detected by ultrasound examination. Recommendations Growth ultrasound every four weeks at 28 weeks Weekly NST at 36 weeks Maternal Assessment Height 168 cm Height (ft) 5 ft Height (in) 6 in Physical Exam Initial weight (lb) 157 lb Initial BMI 25.34 kg/m Maternal assessment other: 2 Para 1 Method Transabdominal and transvaginal ultrasound examination. View: Suboptimal view: limited by position Munroe . Number of fetuses: 1 Dating LMP on: 11/05/2023 GA by LMP 21 w + 2 d FRANCO by LMP: 08/11/2024 GA by prior assessment 21 w + 2 d FRANCO by prior assessment: 08/11/2024 Ultrasound examination on: 04/02/2024 GA by U/S based upon: AC, BPD, Femur, HC GA by U/S 21 w + 6 d FRANCO by U/S: 08/07/2024 Assigned: based on stated FRANCO, selected on 04/02/2024 Assigned GA 21 w + 2 d Assigned FRANCO: 08/11/2024 General Evaluation Cardiac activity present. FHR 147 bpm. movements: present. Presentation: breech Placenta: Placental site: posterior, fundal Umbilical cord: Cord vessels: 3 vessel cord. Insertion site: velamentous insertion Amniotic fluid: Amount of AF: normal amount. MVP 5.4 cm Growth Overview Exam date GA BPD (mm) HC (mm) AC (mm) FL (mm) HL (mm) EFW (g) 04/02/2024 21w 2d 53.3 82% 199.2 73% 176.3 81% 32.6 25% 31.8 23% 436 60% Biometry Standard BPD 53.3 mm 22w 1d 82% Hadlock OFD 70.9 mm 22w 0d 94% Nicolaides HC 199.2 mm 22w 1d 73% Sandhya Cerebellum tr 23.4 mm 21w 4d 77% Hill Nuchal fold 3.2 mm AC 176.3 mm 22w 4d 81% Hadlock Femur 32.6 mm 20w 2d 25% Sandhya Humerus 31.8 mm 20w 4d 23% Sandhya EFW 436 g 21w 3d 60% Hadlock EFW (lb) 0 lb EFW (oz) 15 oz EFW by: Hadlock (HC-AC-FL) Extended Director Of [employer] Services 5.4 mm CM 6.1 mm 74% Nicolaides Extremities / Bony Struc FL / HC 0.16 Other Structures FHR 147 bpm Anatomy Cranium: normal Lateral ventricles: normal Choroid plexus: normal Midline falx: normal Cavum septi pellucidi: normal Cerebellum: normal Cisterna magna: normal Head / Neck Vermis: Normal but not required for a standard anatomy exam Neck: Normal but not required for a standard anatomy exam Nuchal fold: Normal but not required for a standard anatomy exam Lips: normal Profile: Normal but not required for a standard anatomy exam Nose: Normal but not required for a standard anatomy exam Face Maxilla: Normal but not required for a standard anatomy exam Mandible: Normal but not required for a standard anatomy exam Orbits: Normal but not required for a standard anatomy exam Lens: Normal but not required for a standard anatomy exam 4-chamber view: normal RVOT view: normal LVOT view: normal 3-vessel view: normal [id number] view: normal Heart / Thorax Situs: situs solitus (normal) Aortic arch view: Normal but not required for a standard anatomy exam SVC: Normal but not required for a standard anatomy exam IVC: Normal but not required for a standard anatomy exam Cardiac axis: normal Rt lung: Normal but not required for a standard anatomy exam Lt lung: Normal but not required for a standard anatomy exam Diaphragm: Normal but not required for a standard anatomy exam Cord insertion: normal Stomach: normal Kidneys: normal Bladder: normal Genitals: normal Abdomen Abdom. wall: normal Cervical spine: normal Thoracic spine: normal Lumbar spine: normal Sacral spine: normal Arms: normal Legs: normal Rt upper arm: normal Rt forearm: normal Rt hand: normal Rt fingers: normal Lt upper arm: normal Lt forearm: normal Lt hand: normal Lt fingers: normal Rt upper leg: normal Rt lower leg: normal Rt foot: normal Lt upper leg: normal Lt lower leg: normal Lt foot: normal Gender: Unspecified Wants to know sex: no Maternal Structures Uterus / Cervix Uterus: Visualized Cervix: Visualized Approach: Transvaginal Cervical length 38.9 mm Ovaries / Tubes / Adnexa Rt ovary: Visualized Lt ovary: Not visualized Performed By: Lalitha Jacobs RDMS, RVT Read By: Roxann Hunter M.D. MATERNAL MEDICINE [facility] Radiology Study observation (narrative) [facility] ALANINE AMINOTRANSFERASE / S GPTon 03-22-2024 ALT [Catalytic activity/Vol] 11 U/L 7 - 38 U/L [facility] ALT SerPl-cCncon 03-22-2024 ALT [Catalytic activity/Vol] 11 U/L Normal 7-38 [facility] Comment on above: Order Comment: Speci men Type: FLUID SPECIMEN Ordering Facility: [facility] Address: [address] [place] [address] Performed By: #### L [id number] #### [facility] CLIA [id number] [address] [place] [address] [place] ASPARTATE AMINOTRANSFERASE/S GOTOrdered By: Eugenia Guillaume on 03-22-2024 AST [Catalytic activity/Vol] 13 U/L 13 - 35 U/L [facility] AST SerPl-cCncon 03-22-2024 AST [Catalytic activity/Vol] 13 U/L Normal 13-35 [facility] Comment on above: Order Comment: Speci men Type: FLUID SPECIMEN Ordering Facility: [facility] Address: [address] [place] [address] Performed By: #### L [id number] #### [facility] CLIA [id number] [address] [place] [address] [place] BILE ACIDS FRACT BLDon 03-22 CHENODEOXYCHOLIC ACID 2.0 umol/L Normal 0.0-3.4 [facility] Comment on above: Order Comment: Speci men Type: BLOOD SPECIMEN Ordering Facility: [facility] Address: [address] [place] [address] Performed By: #### T SPN #### [facility] CLIA [id number] [address] [place] [address] [place] CHOLIC ACID 0.3 umol/L Normal 0.0-1.9 [facility] Comment on above: Order Comment: Speci men Type: BLOOD SPECIMEN Ordering Facility: [facility] Address: [address] [place] [address] Performed By: #### T SPN #### [facility] CLIA [id number] [address] [place] [address] [place] DEOXYCHOLIC ACID 0.9 umol/L Normal 0.0-2.5 [facility] Comment on above: Order Comment: Speci men Type: BLOOD SPECIMEN Ordering Facility: [facility] Address: [address] [place] [address] Performed By: #### T SPN #### [facility] CLIA [id number] [address] [place] [address] [place] TOTAL BILE ACIDS 3.5 umol/L Normal 0.0-7.0 [facility] Comment on above: Order Comment: Speci men Type: BLOOD SPECIMEN Ordering Facility: [facility] Address: [address] [place] [address] Result Comment: INTE RPRETIVE INFORMATION: Bile Acids, Fractionated and Total This test was developed and its performance characteristics determined by [facility]. It has not been cleared or approved by the [place] Food and Drug Administration. This test was performed in a CLIA certified laboratory and is intended for clinical purposes. Performed By: [facility] [address] [place] [id number] [place]: Jamil Morse MD, PhD CLIA Number: [id number] Performed By: #### T SPN #### [facility] CLIA [id number] [address] [place] [address] [place] URSODEOXYCHOLIC ACID 0.3 umol/L Normal 0.0-1.0 [facility] Comment on above: Order Comment: Jessi men Type: BLOOD SPECIMEN Ordering Facility: [facility] Address: [address] [place] [address] Performed By: #### T SPN #### [facility] CLIA [id number] [address] [place] [address] [place] BILE ACIDS, TOTALon 03-22-19 25 Bile acid [Moles/Vol] 4.6 umol/L Normal <7.5 [facility] Comment on above: Order Comment: Speci men Type: BLOOD SPECIMEN Ordering Facility: [facility] Address: [address] [place] [address] Result Comment: Refe rence interval applies to fasting specimens. The total serum bile acid concentration is increased after meals; hence, samples should be collected under fasting conditions, when possible. This does not apply to patients for whom intrahepatic cholestasis of as a diagnostic consideration; these patients will need peak bile acid testing, and samples should be postprandial. This serum bile acid assay should not be used for patients receiving ursodeoxycholic acid, nor should it be used as the primary assay for the screening or diagnosis of genetic disorders of bile acid metabolism. Patient Reference Intervals: 0 Days to 5 Months: Not established 6 Months to 23 Months: <25.8 umol/L 2 Years to 4 Years: <20.9 umol/L 5 Years to 9 Years: <12.4 umol/L 10 Years to 19 Years: <13.6 umol/L 20 Years to 59 Years: <7.5 umol/L >=60 Years: <8.3 umol/L Reference Intervals (Non-fasting): First Trimester (up to 13 weeks gestation): < 15.3 umol/L Reference Interval (Non-fasting): Second Trimester (13 - 27 weeks gestation): < 11.4 umol/L Reference Interval (Non-fasting): Third Trimester (> 27 weeks gestation): < 10.4 umol/L Performed By: #### T SPN #### [facility] CLIA [id number] [address] [place] [address] [place] No Panel Informationon 03-22 Interpretation and review of laboratory results Normal [facility] CBC W Auto Differential pane l (Bld)on 02-07-2024 Basophils (Bld) [#/Vol] 0.06 10*3/uL Normal <0.11 [facility] Comment on above: Order Comment: Speci men Type: FLUID SPECIMEN Ordering Facility: [facility] Address: [address] [place] [address] Performed By: #### L [id number] #### [facility] CLIA [id number] [address] [place] [address] [place] Basophils/100 WBC (Bld) 0.7 % Normal [facility] Comment on above: Order Comment: Speci men Type: FLUID SPECIMEN Ordering Facility: [facility] Address: [address] [place] [address] Performed By: #### L [id number] #### [facility] CLIA [id number] [address] [place] [address] [place] Differential cell count method Nom (Bld) Auto Normal [facility] Comment on above: Order Comment: Speci men Type: FLUID SPECIMEN Ordering Facility: [facility] Address: [address] [place] [address] Performed By: #### L [id number] #### [facility] CLIA [id number] [address] [place], [place] [address] [place] Eosinophils (Bld) [#/Vol] 0.10 10*3/uL Normal <0.46 [facility] Comment on above: Order Comment: Speci men Type: FLUID SPECIMEN Ordering Facility: [facility] Address: [address] [place] [address] Performed By: #### L [id number] #### [facility] CLIA [id number] [address] [place] [address] [place] Eosinophils/100 WBC (Bld) 1.2 % Normal [facility] Comment on above: Order Comment: Speci men Type: FLUID SPECIMEN Ordering Facility: [facility] Address: [address] [place] [address] Performed By: #### L [id number] #### [facility] CLIA [id number] [address] [place] [address] [place] Erythrocyte distribution width (RBC) [Ratio] 12.0 % Normal 11.5-15.0 [facility] Comment on above: Order Comment: Speci men Type: FLUID SPECIMEN Ordering Facility: [facility] Address: [address] [place] [address] Performed By: #### L [id number] #### [facility] CLIA [id number] [address] [place] [address] [place] Hematocrit (Bld) [Volume fraction] 37.7 % Normal 36.0-46.0 [facility] Comment on above: Order Comment: Speci men Type: FLUID SPECIMEN Ordering Facility: [facility] Address: [address] [place] [address] Performed By: #### L [id number] #### [facility] CLIA [id number] [address] [place] [address] [place] Hemoglobin (Bld) [Mass/Vol] 13.3 g/dL Normal 11.5-15.5 [facility] Comment on above: Order Comment: Speci men Type: FLUID SPECIMEN Ordering Facility: [facility] Address: [address] [place] [address] Performed By: #### L [id number] #### [facility] CLIA [id number] [address] [place] [address] [place] Immature granulocytes (Bld) [#/Vol] 0.03 10*3/uL Normal <0.10 [facility] Comment on above: Order Comment: Speci men Type: FLUID SPECIMEN Ordering Facility: [facility] Address: [address] [place] [address] Performed By: #### L [id number] #### [facility] CLIA [id number] [address] [place] [address] [place] Immature granulocytes/100 WBC (Bld) 0.4 % Normal [facility] Comment on above: Order Comment: Speci men Type: FLUID SPECIMEN Ordering Facility: [facility] Address: [address] [place] [address] Performed By: #### L [id number] #### [facility] CLIA [id number] [address] [place] [address] [place] Lymphocytes (Bld) [#/Vol] 1.97 10*3/uL Normal 1.00-4.00 [facility] Comment on above: Order Comment: Speci men Type: FLUID SPECIMEN Ordering Facility: [facility] Address: [address] [place] [address] Performed By: #### L [id number] #### [facility] CLIA [id number] [address] [place] [address] [place] Lymphocytes/100 WBC (Bld) 23.4 % Normal [facility] Comment on above: Order Comment: Speci men Type: FLUID SPECIMEN Ordering Facility: [facility] Address: [address] [place] [address] Performed By: #### L [id number] #### [facility] CLIA [id number] [address] [place] [address] [place] MCH (RBC) [Entitic mass] 30.9 pg Normal 26.0-34.0 [facility] Comment on above: Order Comment: Speci men Type: FLUID SPECIMEN Ordering Facility: [facility] Address: [address] [place] [address] Performed By: #### L [id number] #### [facility] CLIA [id number] [address] [place] [address] [place] MCHC (RBC) [Mass/Vol] 35.3 g/dL Normal 30.5-36.0 [facility] Comment on above: Order Comment: Speci men Type: FLUID SPECIMEN Ordering Facility: [facility] Address: [address] [place] [address] Performed By: #### L [id number] #### [facility] CLIA [id number] [address] [place] [address] [place] MCV (RBC) [Entitic vol] 87.5 fL Normal 80.0-100.0 [facility] Comment on above: Order Comment: Speci men Type: FLUID SPECIMEN Ordering Facility: [facility] Address: [address] [place] [address] Performed By: #### L [id number] #### [facility] CLIA [id number] [address] [place] [address] [place] Monocytes (Bld) [#/Vol] 0.47 10*3/uL Normal <0.87 [facility] Comment on above: Order Comment: Speci men Type: FLUID SPECIMEN Ordering Facility: [facility] Address: [address] [place] [address] Performed By: #### L [id number] #### [facility] CLIA [id number] [address] [place] [address] [place] Monocytes/100 WBC (Bld) 5.6 % Normal [facility] Comment on above: Order Comment: Speci men Type: FLUID SPECIMEN Ordering Facility: [facility] Address: [address] [place] [address] Performed By: #### L [id number] #### [facility] CLIA [id number] [address] [place] [address] [place] Neutrophils (Bld) [#/Vol] 5.78 10*3/uL Normal 1.45-7.50 [facility] Comment on above: Order Comment: Speci men Type: FLUID SPECIMEN Ordering Facility: [facility] Address: [address] [place] [address] Performed By: #### L [id number] #### [facility] CLIA [id number] [address] [place] [address] [place] Neutrophils/100 WBC (Bld) 68.7 % Normal [facility] Comment on above: Order Comment: Speci men Type: FLUID SPECIMEN Ordering Facility: [facility] Address: [address] [place] [address] Performed By: #### L [id number] #### [facility] CLIA [id number] [address] [place] [address] [place] Nucleated RBC (Bld) [#/Vol] 10*3/uL Normal <0.01 [facility] Comment on above: Order Comment: Speci men Type: FLUID SPECIMEN Ordering Facility: [facility] Address: [address] [place] [address] Performed By: #### L [id number] #### [facility] CLIA [id number] [address] [place] [address] [place] Nucleated RBC/100 WBC (Bld) [Ratio] 0.0 /100 WBC Normal [facility] Comment on above: Order Comment: Speci men Type: FLUID SPECIMEN Ordering Facility: [facility] Address: [address] [place] [address] Performed By: #### L [id number] #### [facility] CLIA [id number] [address] [place] [address] [place] Platelet mean volume (Bld) [Entitic vol] 9.7 fL Normal 9.0-12.7 [facility] Comment on above: Order Comment: Speci men Type: FLUID SPECIMEN Ordering Facility: [facility] Address: [address] [place] [address] Performed By: #### L [id number] #### [facility] CLIA [id number] [address] [place] [address] [place] Platelets (Bld) [#/Vol] 306 10*3/uL Normal 150-400 [facility] Comment on above: Order Comment: Speci men Type: FLUID SPECIMEN Ordering Facility: [facility] Address: [address] [place] [address] Performed By: #### L [id number] #### [facility] CLIA [id number] [address] [place] [address] [place] RBC (Bld) [#/Vol] 4.31 10*6/uL Normal 3.90-5.20 [facility] Comment on above: Order Comment: Speci men Type: FLUID SPECIMEN Ordering Facility: [facility] Address: [address] [place] [address] Performed By: #### L [id number] #### [facility] CLIA [id number] [address] [place] [address] [place] WBC (Bld) [#/Vol] 8.41 10*3/uL Normal 3.70-11.00 [facility] Comment on above: Order Comment: Speci men Type: FLUID SPECIMEN Ordering Facility: [facility] Address: [address] [place] [address] Performed By: #### L [id number] #### [facility] CLIA [id number] [address] [place] [address] [place] nuchal translucency me asured by Puneet 02-07-2024 Indication First trimester anatomic survey Impression REMOTE READ The patient is referred for a first trimester anatomy scan including nuchal translucency measurement as clinically indicated. - Single, live, intrauterine . - [place] rump length measurement is consistent with the established gestational age. - No malformations visualized on a complete first trimester anatomic assessment. - The nuchal translucency measurement is 1.5 mm. - Not all structural malformations can be detected by ultrasound examination. Maternal Structures: Right Ovary: Size 26 mm x 21 mm x 16 mm Left Ovary: Size 21 mm x 17 mm x 13 mm Recommendations Return for anatomy ultrasound Maternal Assessment Height 168 cm Height (ft) 5 ft Height (in) 6 in Physical Exam Initial weight (lb) 157 lb Initial BMI 25.34 kg/m Maternal assessment other: 2 Para 1 Method Transabdominal ultrasound examination Munroe . Number of fetuses: 1 Dating LMP on: 11/05/2023 GA by LMP 13 w + 3 d FRANCO by LMP: 08/11/2024 GA by prior assessment 13 w + 3 d FRANCO by prior assessment: 08/11/2024 Ultrasound examination on: 02/07/2024 GA by U/S based upon: CRL GA by U/S 13 w + 4 d FRANCO by U/S: 08/10/2024 Assigned: based on stated FRANCO, selected on 02/07/2024 Assigned GA 13 w + 3 d Assigned FRANCO: 08/11/2024 General Evaluation Cardiac activity present Placenta: posterior Cord vessels: 3 vessel cord Amniotic fluid: normal amount Biometry Standard FHR 148 bpm CRL 74.3 mm 13w 4d 55% Hadlock NT 1.50 mm First Trimester Anatomy Calvarium: normal Falx cerebri: normal Choroid plexus: normal Profile: normal Nasal bone: normal Retronasal triangle: normal Maxilla: normal Mandible: normal Nuchal translucency: Unremarkable Situs: normal Cardiac position: normal Cardiac axis: normal 4-chamber view: normal 4-chamber view with color: normal [id number] view: normal Abdominal cord insertion: normal Stomach: normal Kidneys: normal Bladder: normal Color doppler of perivesical umbilical arteries: normal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 uterus after 1st trimest /1st gestation Madelyn Jacques MD Work Phone: Start: 04-02-2024 Us preg uterus after 1st trimest /1st gestation Lacey Ybarra APRN.CNM Work Phone: Start: 02-07-2024 Antibody screen KARINA OL SON Comment on above: Order Comment: Speci men Type: BLOOD SPECIMEN Ordering Facility: [facility] Address: [address] [place] [address] Performed By: #### T SPN #### CC [facility] CLIA [id number] [address] [place] [address] [place] Start: 02-07-2024 Us nuchal translucency 1st gestation Shannatyler Rwolandpablo DUDLEY Work Phone: Start: 12-28-2023 Us uterus l imited 1/> fetuses Shanna Kerrie DUDLEY Work Phone: Plan of Treatment Date Care Activity Detail Author Start: 05-14-2070 RSV Vaccine (1 - 1-d ose 75+ series) RSV Vaccine (1 - 1-dose 75+ series) [facility] Start: 05-20-2034 Urine microalbumin profile DTaP,Tdap,Td Vaccine (8 - Td or Tdap) [facility] Start: 12-27-2026 Screening for malign ant neoplasm of cervix Cervical Cancer Screening [facility] Start: 10-21-2024 Influenza vaccination Influenz a Vaccine (Season Ended) [facility] Start: 07-29-2024 End: 07-29-2024 Patient encounter procedure OB/Gynecology Comment on above: NST NST/OB Start: 07-22-2024 End: 07-22-2024 Patient encounter procedure OB/Gynecology Comment on above: NST NST/OB Start: 07-16-2024 End: 07-16-2024 Patient encounter procedure Maternal Medicine Comment on above: Growth Growth/OB Start: 07-01-2024 End: 07-01-2024 Patient encounter procedure 07/01/2024 11:10 AM EDT Routine Office Visit OB/Gynecology [address] [place] [address] Virginia Valdovinos MD [address] [place] [address] OB OB/Gynecology Comment on above: OB Start: 06-17-2024 End: 06-17-2024 Patient encounter procedure Maternal Medicine Comment on above: Growth OB Start: 06-17-2024 End: 06-17-2024 Patient encounter procedure Maternal Medicine Comment on above: Growth OB Start: 06-03-2024 End: 06-03-2024 Patient encounter procedure 06/03/2024 11:15 AM EDT Routine Office Visit OB/Gynecology [address] [place] [address] Lacey Ybarra APRN.CN [address] [place] [address] OB OB/Gynecology Comment on above: OB Start: 05-20-2024 End: 05-20-2024 Patient encounter procedure Maternal Medicine Comment on above: Growth OB Routine Start: 05-20-2024 End: 05-20-2024 ambulatory 05/20/2024 10:15 AM EDT Results Only [facility] Laboratory [address] [place] [address] Glucose test and Labs [facility] Laboratory Comment on above: Glucose test and Lab s Start: 04-30-2024 End: 04-30-2024 Patient encounter procedure 04/30/2024 2:30 PM EDT Routine Office Visit OB/Gynecology [address] [place] [address] Madelyn Jacques MD [address] [place] [address] OB Routine OB/Gynecology Comment on above: OB Routine Start: 04-30-2024 End: 07-30-2024 ANEMIA REFLEX PANEL ANEMIA REFLEX PANEL Lab Routine 25 weeks gestation of Expected: 04/30/2024, Expires: 07/30/2024 [facility] Comment on above: Expected: 04/30/2024 , Expires: 07/30/2024 Start: 04-30-2024 End: 04-30-2025 GESTATIONAL GLUCOSE SCREEN, 1-HOUR, 50 GRAM, NON-FASTING GESTATIONAL GLUCOSE SCREEN, 1-HOUR, 50 GRAM, NON-FASTING Lab Routine Screening for diabetes mellitus Expected: 04/30/2024, Expires: 04/30/2025 [facility] Work Phone: Comment on above: Expected: 04/30/2024 , Expires: 04/30/2025 Start: 04-30-2024 End: 04-30-2025 OBSTETRIC ULTRASOUND WHI OBSTETRIC ULTRASOUND WHI Anc Imaging Routine Velamentous insertion 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 trimester Expected: 04/30/2024, Expires: 04/30/2025 [facility] Comment on above: Expected: 04/30/2024 , Expires: 04/30/2025 Start: 04-30-2024 End: 04-30-2025 SYPHILIS TREPONEMAL W/REFLEX SYPHILIS TREPONEMAL W/REFLEX Lab Routine 25 weeks gestation of Expected: 04/30/2024, Expires: 04/30/2025 [facility] Comment on above: Expected: 04/30/2024 , Expires: 04/30/2025 Start: 04-02-2024 End: 04-02-2024 Patient encounter procedure Maternal Medicine Comment on above: OB US ANATOMY OB Start: 03-22-2024 End: 06-21-2024 BILE ACIDS FRACT BLD [facility] Work Phone: Comment on above: Expected: 03/22/2024 , Expires: 06/21/2024 Start: 03-22-2024 End: 06-21-2024 BILE ACIDS, TOTAL [facility] Comment on above: Expected: 03/22/2024 , Expires: 06/21/2024 Start: 03-06-2024 End: 03-06-2025 OBSTETRIC ULTRASOUND WHI OBSTETRIC ULTRASOUND WHI Anc Imaging Routine Encounter for supervision of other normal in second trimester Expected: 03/06/2024, Expires: 03/06/2025 [facility] Work Phone: Comment on above: Expected: 03/06/2024 , Expires: 03/06/2025 Start: 03-06-2024 End: 03-06-2024 Patient encounter procedure 03/06/2024 9:45 AM EST Routine Office Visit OB/Gynecology [address] [place] [address] Lacey Ybarra APRN.CN [address] [place] [address] OB OB/Gynecology Comment on above: OB Start: 02-07-2024 End: 02-07-2024 Patient encounter procedure Maternal Medicine Comment on above: Nuchal OB Start: 01-25-2024 End: 01-25-2024 Patient encounter procedure 01/25/2024 10:00 AM EST Routine Office Visit OB/Gynecology [address] [place] [address] Cynthia Buckner MD [address] [place] [address] ob lmp 11/04 OB/Gynecology Comment on above: ob lmp 11/04 Start: 12-28-2023 End: 03-28-2024 ANEMIA REFLEX PANEL ANEMIA REFLEX PANEL Lab Routine Encounter for supervision of other normal in first trimester Expected: 12/28/2023, Expires: 03/28/2024 [facility] Comment on above: Expected: 12/28/2023 , Expires: 03/28/2024 Start: 12-28-2023 End: 03-28-2024 Hemoglobin A1c in Blood HEMOGLOBIN A1C Lab Routine Encounter for supervision of other normal in first trimester Expected: 12/28/2023, Expires: 03/28/2024 [facility] Comment on above: Expected: 12/28/2023 , Expires: 03/28/2024 Start: 12-28-2023 End: 03-28-2024 Hepatitis B virus surface Ag [Presence] in Serum HEPATITIS B SURFACE ANTIGEN Lab Routine Encounter for supervision of other normal in first trimester Expected: 12/28/2023, Expires: 03/28/2024 [facility] Comment on above: Expected: 12/28/2023 , Expires: 03/28/2024 Start: 12-28-2023 End: 03-28-2024 Hepatitis C virus Ab [Presence] in Serum HEPATITIS C ANTIBODY IA WITH CONFIRMATION Lab Routine Encounter for supervision of other normal in first trimester Expected: 12/28/2023, Expires: 03/28/2024 [facility] Comment on above: Expected: 12/28/2023 , Expires: 03/28/2024 Start: 12-28-2023 End: 03-28-2024 HIV 1+2 Ab [Presence] in Serum or Plasma by Immunoassay HIV 1/2 COMBO WITH REFLEX TO DIFFERENTIATION Lab Routine Encounter for supervision of other normal in first trimester Expected: 12/28/2023, Expires: 03/28/2024 [facility] Comment on above: Expected: 12/28/2023 , Expires: 03/28/2024 Start: 12-28-2023 End: 12-27-2024 NUCHAL TRANSLUCENCY WHI NUCHAL TRANSLUCENCY WHI Anc Imaging Routine Encounter for supervision of other normal in first trimester 7 weeks gestation of with uncertain dates in first trimester Expected: 12/28/2023, Expires: 12/27/2024 [facility] Work Phone: Comment on above: Expected: 12/28/2023 , Expires: 12/27/2024 Start: 12-28-2023 End: 12-27-2024 OBSTETRIC ULTRASOUND WHI OBSTETRIC ULTRASOUND WHI Anc Imaging Routine Encounter for supervision of other normal in first trimester Expected: 12/28/2023, Expires: 12/27/2024 [facility] Comment on above: Expected: 12/28/2023 , Expires: 12/27/2024 Start: 12-28-2023 End: 03-28-2024 RUBELLA IGG ANTIBODY RUBELLA IGG ANTIBODY Lab Routine Encounter for supervision of other normal in first trimester Expected: 12/28/2023, Expires: 03/28/2024 [facility] Comment on above: Expected: 12/28/2023 , Expires: 03/28/2024 Start: 12-28-2023 End: 03-28-2024 SYPHILIS TREPONEMAL W/REFLEX SYPHILIS TREPONEMAL W/REFLEX Lab Routine Encounter for supervision of other normal in first trimester Expected: 12/28/2023, Expires: 03/28/2024 [facility] Comment on above: Expected: 12/28/2023 , Expires: 03/28/2024 Start: 12-28-2023 End: 03-28-2024 TYPE + SCREEN TYPE + SCREEN Blood Bank Routine Encounter for supervision of other normal in first trimester Expected: 12/28/2023, Expires: 03/28/2024 [facility] Comment on above: Expected: 12/28/2023 , Expires: 03/28/2024 Start: 12-28-2023 End: 12-28-2023 Patient encounter procedure 12/28/2023 11:00 AM EST Initial Office Visit OB/Gynecology [address] [place] [address] Shanna Sy APRN.METER AND REGULATOR SHOP SUPERVISOR [address] [place] [address] ob lmp 11/04 OB/Gynecology Comment on above: ob lmp 11/04 Start: 10-22-2023 Covid-19 Vaccine () Covid-19 Vaccine () [facility] Start: 10-22-2023 Influenza vaccination Influenza Vacc ine (#1) [facility] Start: 11-30-2021 Screening for malign ant neoplasm of cervix Cervical Cancer Screening [facility] Start: 08-28-2019 Urine microalbumin profile DTaP,Tdap,Td Vaccine (7 - Td or Tdap) [facility] Start: 05-14-2014 Hepatitis B Vaccine (1 of 3 - 19+ 3-dose series) Hepatitis B Vaccine (1 of 3 - 19+ 3-dose series) [facility] Start: 05-14-2014 Urine microalbumin profile DTaP,Tdap,Td Vaccine (1 - Tdap) [facility] Start: 05-14-2013 Anxiety Screening Anxiety Screening [facility] Start: 05-14-2013 Depression Screening Depression Scre ening [facility] Start: 05-14-2013 Hepatitis C screening Hepatitis C Sc reening [facility] Start: 05-14-2013 HIV screening HIV Screening [facility] Bacteria identified in Urine by Culture URINE CULTURE Microbiology Routine Encounter for supervision of other normal in first trimester 12/28/2023 11:58 AM EST [facility] Chlamydia trachomatis+Neisseria gonorrhoeae DNA [Presence] in Unspecified specimen by LUIS ALBERTO with probe detection GONORRHEA/CHLAMYDIA NAAT Lab Routine Encounter for supervision of other normal in first trimester 12/28/2023 11:58 AM EST [facility] End: 08-12-2024 nonstress test NON-STRESS TEST Procedures Routine 34 weeks gestation of (HCC) Encounter for supervision of other normal in third trimester (HCC) Velamentous insertion 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 trimester (HCC) Once per week for 4 Occurrences starting 07/01/2024 until 08/12/2024 [facility] Work Phone: Comment on above: Once per week for 4 Occurrences starting 07/01/2024 until 08/12/2024 End: 08-11-2024 OBSTETRIC ULTRASOUND WHI OBSTETRIC ULTRASOUND WHI Anc Imaging Routine 28 weeks gestation of Velamentous insertion of umbilical cord, antepartum Once per month for 2 Occurrences starting 05/20/2024 until 08/11/2024 [facility] Work Phone: Comment on above: Once per month for 2 Occurrences starting 05/20/2024 until 08/11/2024 PAP TEST PAP TEST Lab Nino dawn Screening for cervical cancer 12/28/2023 11:58 AM EST [facility] Path report.final Dx Spec [facility] Work Phone: ROUTINE, GR OUP B STREPTOCOCCUS BY PCR ROUTINE, GROUP B STREPTOCOCCUS BY PCR Microbiology Routine 36 weeks gestation of (HCC) Ordered: 07/16/2024 [facility] Work Phone: Comment on above: Ordered: 07/16/2024 Immunizations Immunization Date Immunization Notes Care Provider Wolf mendez 05-20-2024 tetanus toxoid, redu reuben diphtheria toxoid, and acellular pertussis vaccine, adsorbed Whi Mob [facility] 11-12-2018 influenza virus vacc ine, unspecified formulation Shanna Sy APRN.CNP Work Phone: [facility] Payers Date Payer Category Payer Self-pay [id number] 2023 [employer] Blue [employer] BLUE ACCE SS PPO [id number] 2023 Unknown GRABIEL ESCALERA SS PPO [id number] 2023-Present [phone] [address] [place] [address] PPO [id number] 2023 Unknown [id number] 1995 Unknown [id number] Private Health Insurance [id number] Unknown SELF PAY INSURANCE [id number] 01 [id number] Unknown SELF PAY INSURANCE [id number] Unknown [id number] Social History Date Type Detail Facility Start: 11-27-2020 Tobacco smoking stat us [facility] Unknown if ever smoked [facility] Work Phone: Start: 1995 Sex Assigned At Female [facility] Start: 08-02-2013 End: 12-28-2023 Tobacco smoking status NHIS Never smoked tobacco [facility] Start: 08-02-2013 End: 12-28-2023 Tobacco use and exposure Smokeless tobacco non-user [facility] Start: 10-03-2019 Alcoholic beverage intake Current non-drinker of alcohol (finding) [facility] Start: 11-22-2018 End: 02-07-2024 History of Social function [facility] Start: 11-22-2018 End: 02-07-2024 Tobacco use panel [facility] Start: 1995 Sex assigned at Not on file C [facility] Start: 12-28-2023 End: 06-03-2024 Alcoholic beverage intake Ex-drinker (finding) [facility] Start: 12-27-2023 Education 16 [facility] Start: 12-27-2023 Alcohol Comment rarely [facility] Start: 11-19-2023 [facility] National Score (1-100), lower number is lower risk 98 [facility] Start: 03-06-2024 Gender identity Identifies as female gender (finding) [facility] Goals Date Patient Goal Desired Activity /State Personal health goal Functional Status Date Assessment Result Facility 08-02-2013 Are you deaf, or do you have serious difficulty hearing No 08/02/2013 4:39 PM JORGET Elisa Morin MA No [facility] 08-02-2013 Are you blind, or do you have serious difficulty seeing, even when wearing glasses No 08/02/2013 4:39 PM JORGET Elisa Morin MA No [facility] 08-02-2013 Do you have serious difficulty walking or climbing stairs No 08/02/2013 4:39 PM EDT Elisa Morin MA No [facility] 08-02-2013 Do you have difficul ty dressing or bathing No 08/02/2013 4:39 PM EDT Elisa Morin MA No [facility] 08-02-2013 Because of a physica l, mental, or emotional condition, do you have difficulty doing errands alone such as visiting a physician's office or shopping No 08/02/2013 4:39 PM EDT Elisa Morin MA [facility] Mental Status Date Assessment Result Facility 08-02-2013 Because of a physica l, mental, or emotional condition, do you have serious difficulty concentrating, remembering, or making decisions No 08/02/2013 4:39 PM EDT Elisa Morin MA No [facility] Clinical Notes 12-26-2023 to 08-02-2024 Lucy Monterroso MA - 07/31/2024 2:50 PM EDTPrenatal Quick Notes - Virginia Valdovinos MD - 07/29/2024 11:52 AM JORGETVirginia Valdovinos MD - 07/29/2024 11:52 AM EDTPatient InstructionsPatient Instructions Note Date & Type Note Facility 08-02-2024 Note HNO ID: [id number] Author: LUCY MONTERROSO MA Service: ? 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 Reason for Outreach Medicaid OB/Peds Care Gaps due: N/A Patient Contacted: Spoke to patient/parent/or legal guardian Patient identified by name and : Yes Medicaid OB/Peds actions taken: [place]/Supervisor Paper Testing added Navigation Signature: Lucy Laura MA August 02, 2024 12:00 PM [facility] 07-31-2024 Note HNO ID: [id number] Author: LUCY MONTERROSO MA Service: ? Author Type: Film Developer Type: Progress Notes Filed: 07/31/2024 14:51 Note Text: POPULATION HEALTH NAVIGATION OUTREACH Action/I 1st attempt: Called and left message to call back to discuss filter changing technician. MC message sent. Reason for Outreach Medicaid OB/Peds Care Gaps due: N/A Patient Contacted: Unable or unnecessary to reach patient: Unable to reach patient Left message [employer] message sent Navigation Signature: Lucy Laura MA July 31, 2024 2:50 PM [facility] 07-31-2024 History of Present illness Narrative POPULATION HEALTH NAVIGATION OUTREACH Action/I 1st attempt: Called and left message to call back to discuss filter changing technician. MC message sent. Reason for Outreach Medicaid OB/Peds Care Gaps due: N/A Patient Contacted: Unable or unnecessary to reach patient: Unable to reach patient Left message [employer] message sent Navigation Signature: Lucy Laura MA July 31, 2024 2:50 PM documented in this encounter [facility] 07-31-2024 Note Patient Outreach (ELADIO CONNOR) MAURICIO OLIVER ([id number]) 1995 F Date Time Provider Department 07/31/24 LUCY MONTERROSO During your visit today, we recorded the following information about you: Lucy Monterroso MA 07/31/2024 2:51 PM Signed POPULATION HEALTH NAVIGATION OUTREACH Action/FYI 1st attempt: Called and left message to call back to discuss filter changing technician. message sent. 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 Reason for Outreach Medicaid OB/Peds Care Gaps due: N/A Patient Contacted: Spoke to patient/parent/or legal guardian Patient identified by name and : Yes Medicaid OB/Peds actions taken: /Supervisor Paper Testing added Navigation Signature: Lucy Laura MA August 02, 2024 12:00 PM Allergies As of Date: 07/31/2024 (No Known Allergies) Date Reviewed: 07/29/2024 Reviewed by: Lucy Dumont MA - Fully Assessed Reason for Visit: Population Health Navigation Outreach [3910] Cmt: Ob/peds Prescriptions as of 08/02/2024 - acetaminophen (TYLENOL 8 HOUR ORAL) Take by mouth as needed. - famotidine (PEPCID ORAL) Take by mouth. - aspirin, enteric coated (ECOTRIN LOW STRENGTH) 81 mg EC tablet Take 1 tablet by mouth once daily. - Yyltbats-Iw-Srp-Fe-FA ( VITAMIN) tab Take 1 tablet by mouth. Problem List As Of Date 07/31/2024 Noted Resolved History of anxiety [Z86.59] 11/22/2018 Supervision of normal [Z34.90] 12/28/2023 History of depression [Z86.59] 12/28/2023 Rubella non-immune status, antepartum [O09.899,*02/08/2024 Heartburn during in second trimester *03/06/2024 Velamentous insertion of umbilical cord in seco*04/02/2024 Abnormal glucose complicating (HCC) [*06/03/2024 Encounter Status:Closed by LUCY MONTERROSO on 07/31/24 [facility] 07-29-2024 Progress note Formatting of t his note might be different from the original. SW- Pt doing well. Having cramping and irregular ctx's. Uncomfortable. No vb, lof. Good FM PE: Gen- NAD, well appearing Abd- Soft, gravid, NT Cvx 50/-3 Jena with irregular ctx's See flowsheet A/p 38 wk gestation - Velamentous cord insertion: NST reactive today - Patient desires elective 39-40 week IOL. Discussed r/b/a and consent signed. Scheduled for 08/05/24 7 AM Virginia Valdovinos DO [facility] 07-29-2024 Note HNO ID: [id number] Author: VIRGINIA VALDOVINOS MD Service: ? Author Type: Physician Type: Progress Notes Filed: 07/29/2024 11:55 Note Text: NST SUMMARY PROVIDER ASSESSMENT AND INTERPRETATION Mauricio Oliver is a 29 year old female, , who is at 38w1d with an FRANCO of 08/11/2024, by Last Menstrual Period dating method. Indications for NST: Other: velamentous cord insertion Baseline: 135 Variability: Moderate Accelerations: Present 15 X 15 Decelerations: None Contractions: TOCO: Irregular Interpretation: Reactive SIGNATURE: Virginia Valdovinos DO [facility] 07-29-2024 History of Present illness Narrative NST SUMMARY PROVIDER ASSESSMENT AND INTERPRETATION Mauricio Oliver is a 29 year old female, , who is at 38w1d with an FRANCO of 08/11/2024, by Last Menstrual Period dating method. Indications for NST: Other: velamentous cord insertion Baseline: 135 Variability: Moderate Accelerations: Present 15 X 15 Decelerations: None Contractions: TOCO: Irregular Interpretation: Reactive SIGNATURE: Virginia Valdovinos DO documented in this encounter [facility] 07-29-2024 Miscellaneous Notes SW- Pt doing well. Having cramping and irregular ctx's. Uncomfortable. No vb, lof. Good FM PE: Gen- NAD, well appearing Abd- Soft, gravid, NT Cvx 2/50/-3 Jena with irregular ctx's See flowsheet A/p 38 wk gestation - Velamentous cord insertion: NST reactive today - Patient desires elective 39-40 week IOL. Discussed r/b/a and consent signed. Scheduled for 08/05/24 7 AM Virginia Valdovinos DO documented in this encounter [facility] 07-29-2024 Instructions Lucy Dumont MA - 07/29/2024 9:45 AM EDT SEQUENTIAL SCREENINGS The [facility] offers sequential screenings for women who are interested in screenings for chromosomal abnormalities and certain defects during a . The sequential screen combines ultrasound and blood tests to determine the risk of chromosomal abnormalities, including Down's Syndrome (Trisomy 21) and Trisomy 18, as well as open neural tube defects including spina bifida. Ultrasound examination is performed between 11 weeks and 13 weeks gestational age. Blood tests are drawn after the ultrasound and again later in the between 15 and 21 weeks gestational age. Please let your physician know if you are interested in this testing. It will require an appointment with our machine technician. This is not an ultrasound performed by a physician in our office during a routine visit. SIGNS AND SYMPTOMS OF LABOR 1. Contractions every 10 minutes or more often 2. Clear, pink, or brownish fluid (water) leaking from vagina 3. Feeling that baby is pushing down, pressure 4. Low, dull backache 5. Cramps that feel like a period 6. Cramps with or without diarrhea If you notice any of the above symptoms, contact our office at [phone] and ask to speak with a nurse. After hours, you can call doctors registry at [phone] OR call [facility] at [phone] and ask to have the doctor substation electrician supervisor paged. If you consider this an emergency, dial 9-1- or go to your nearest emergency department. NEED HELP? Are you dealing with a violent or abusive relationship? Are you a victim of rape or sexual assult? Call [facility] ([place]) 24 hour Crisis Hotline: 352.589.2779 or 001-132-2064. MANUAL Your Guide to a Healthy manual is now on-line. Visit [email or web address] to download your free copy documented in this encounter [facility] 07-25-2024 Note HNO ID: [id number] Author: VIRGINIA VALDOVINOS MD Service: ? Author Type: Physician Type: Progress Notes Filed: 07/25/2024 16:43 Note Text: NST SUMMARY PROVIDER ASSESSMENT AND INTERPRETATION Mauricio Oliver is a 29 year old female, , who is at 37w4d with an FRANCO of 08/11/2024, by Last Menstrual Period dating method. Indications for NST: Other: velamentous cord insertion Baseline: 135 Variability: Moderate Accelerations: Present 15 X 15 Decelerations: None Contractions: TOCO: None Interpretation: Reactive SIGNATURE: Virginia Valdovinos DO [facility] 07-25-2024 History of Present illness Narrative NST SUMMARY PROVIDER ASSESSMENT AND INTERPRETATION Mauricio Oliver is a 29 year old female, , who is at 37w4d with an FRANCO of 08/11/2024, by Last Menstrual Period dating method. Indications for NST: Other: velamentous cord insertion Baseline: 135 Variability: Moderate Accelerations: Present 15 X 15 Decelerations: None Contractions: TOCO: None Interpretation: Reactive SIGNATURE: Virginia Valdovinos DO documented in this encounter [facility] 07-25-2024 Progress note Formatting of t his note might be different from the original. SW- Pt doing well. No ctx, vb, lof. Good FM PE: Gen- NAD, well appearing Abd- Soft, gravid, NT See flowsheet A/p 37 wk gestation - Velamentous cord insertion: NST reactive today. Completed growth US - RTO 1 wk Virginia Valdovinos DO [facility] 07-25-2024 Miscellaneous Notes SW- Pt doing well. No ctx, vb, lof. Good FM PE: Gen- NAD, well appearing Abd- Soft, gravid, NT See flowsheet A/p 37 wk gestation - Velamentous cord insertion: NST reactive today. Completed growth US - RTO 1 wk Virginia Valdovinos DO documented in this encounter [facility] 07-22-2024 Instructions Lucy Dumont MA - 07/22/2024 9:51 AM EDT SEQUENTIAL SCREENINGS The [facility] offers sequential screenings for women who are interested in screenings for chromosomal abnormalities and certain defects during a . The sequential screen combines ultrasound and blood tests to determine the risk of chromosomal abnormalities, including Down's Syndrome (Trisomy 21) and Trisomy 18, as well as open neural tube defects including spina bifida. Ultrasound examination is performed between 11 weeks and 13 weeks gestational age. Blood tests are drawn after the ultrasound and again later in the between 15 and 21 weeks gestational age. Please let your physician know if you are interested in this testing. It will require an appointment with our machine technician. This is not an ultrasound performed by a physician in our office during a routine visit. SIGNS AND SYMPTOMS OF LABOR 1. Contractions every 10 minutes or more often 2. Clear, pink, or brownish fluid (water) leaking from vagina 3. Feeling that baby is pushing down, pressure 4. Low, dull backache 5. Cramps that feel like a period 6. Cramps with or without diarrhea If you notice any of the above symptoms, contact our office at [phone] and ask to speak with a nurse. After hours, you can call [employer] [facility] at [phone] OR call [facility] at [phone] and ask to have the doctor substation electrician supervisor paged. If you consider this an emergency, dial 9-1-1 or go to your nearest emergency department. NEED HELP? Are you dealing with a violent or abusive relationship? Are you a victim of rape or sexual assult? Call [facility] ([place]) 24 hour Crisis Hotline: 611.274.3706 or 445-642-8237. MANUAL Your Guide to a Healthy manual is now on-line. Visit [email or web address] to download your free copy documented in this encounter [facility] 07-16-2024 Progress note Formatting of t his note might be different from the original. S: Mauricio Oliver is a 29 year old female who presents at 08/11/2024, by Last Menstrual Period for a routine visit. Denies headache, visual changes, chest pain, shortness of breath, vaginal bleeding, leakage of fluid, or dysuria. Feeling well, no complaints. Good movement, No contractions O: See flow sheet Gen: No apparent distress Abd: Gravid, nontender EFW 82% CADENCE 19.9 VTX on US GBS today ASSESSMENT/PLAN: 1. 36 weeks gestation of ([facility]) - ICD9: V22.2, ICD10: Z3A.36 (primary diagnosis) Labor prcautions - URINE OB DIP B/O - ROUTINE, GROUP B STREPTOCOCCUS BY PCR 2. Encounter for supervision of other normal in third trimester ([facility]) - ICD9: V22.1, ICD10: Z34.83 - URINE OB DIP B/O 3. Velamentous insertion of umbilical cord in third trimester ([facility]) - ICD9: 663.83, ICD10: O43.123 EFW 82% - URINE OB DIP B/O Madelyn Jacques MD [facility] 07-16-2024 Miscellaneous Notes S: Mauricio Oliver is a 29 year old female who presents at 08/11/2024, by Last Menstrual Period for a routine visit. Denies headache, visual changes, chest pain, shortness of breath, vaginal bleeding, leakage of fluid, or dysuria. Feeling well, no complaints. Good movement, No contractions O: See flow sheet Gen: No apparent distress Abd: Gravid, nontender EFW 82% CADENCE 19.9 VTX on US GBS today ASSESSMENT/PLAN: 1. 36 weeks gestation of ([facility]) - ICD9: V22.2, ICD10: Z3A.36 (primary diagnosis) Labor prcautions - URINE OB DIP B/O - ROUTINE, GROUP B STREPTOCOCCUS BY PCR 2. Encounter for supervision of other normal in third trimester ([facility]) - ICD9: V22.1, ICD10: Z34.83 - URINE OB DIP B/O 3. Velamentous insertion of umbilical cord in third trimester ([facility]) - ICD9: 663.83, ICD10: O43.123 EFW 82% - URINE OB DIP B/O Madelyn Jacques MD documented in this encounter [facility] 07-16-2024 Note Indication Evaluation of growth Velamentous cord insertion Impression - Single, live, intrauterine . - presentation is cephalic. - The biometry is consistent with the assigned gestational dating. - The EFW is 3231 g, at the 83%. AC is at the 99%. - The amniotic fluid volume is normal amount with an MVP of 8.7 cm and an CADENCE of 20 cm. - The placenta is posterior. - No malformations visualized on a limited survey as detailed below. Recommendations Additional follow-up as clinically indicated. Maternal Assessment Height 168 cm Height (ft) 5 ft Height (in) 6 in Physical Exam Initial weight (lb) 157 lb Initial BMI 25.34 kg/m Maternal assessment other: 2 Para 1 Method Transabdominal ultrasound examination. Color Doppler examination. View: Adequate visualization Munroe . Number of fetuses: 1 Dating LMP on: 11/05/2023 GA by LMP 36 w + 2 d FRANCO by LMP: 08/11/2024 GA by prior assessment 36 w + 2 d FRANCO by prior assessment: 08/11/2024 Ultrasound examination on: 07/16/2024 GA by U/S based upon: AC, BPD, Femur, HC GA by U/S 37 w + 0 d FRANCO by U/S: 08/06/2024 Assigned: based on stated FRANCO, selected on 05/20/2024 Assigned GA 36 w + 2 d Assigned FRANCO: 08/11/2024 General Evaluation Cardiac activity present. FHR 136 bpm. movements: present. Presentation: cephalic Placenta: Placental site: posterior Umbilical cord: Cord vessels: 3 vessel cord Amniotic fluid: Amount of AF: normal amount. MVP 8.7 cm. CADENCE 20.0 cm. Q1 3.9 cm, Q2 8.7 cm, Q3 2.6 cm, Q4 4.9 cm Growth Overview Exam date GA BPD (mm) HC (mm) AC (mm) FL (mm) HL (mm) EFW (g) 04/02/2024 21w 2d 53.3 82% 199.2 73% 176.3 81% 32.6 25% 31.8 23% 436 60% 05/20/2024 28w 1d 76.3 96% 280.4 88% 259.3 91% 49.9 21% 1344 75% 06/17/2024 32w 1d 84.4 89% 311.7 82% 301 93% 58.1 15% 2117 70% 07/16/2024 36w 2d 90.7 73% 337.4 77% 349.4 99% 66.2 18% 3231 83% Biometry Standard BPD 90.7 mm 36w 5d 73% Hadlock OFD 119.0 mm -/- 79% Nicolaides HC 337.4 mm 38w 4d 77% Sandhya AC 349.4 mm 38w 6d 99% Hadlock Femur 66.2 mm 33w 6d 18% Sandhya EFW 3,231 g 38w 0d 83% Hadlock EFW (lb) 7 lb EFW (oz) 2 oz EFW by: Hadlock (HC-AC-FL) Extended Director Of Career Services 3.9 mm Extremities / Bony Struc FL / HC 0.20 Other Structures FHR 136 bpm Anatomy Lateral ventricles: normal Cavum septi pellucidi: normal Cerebellum: normal Cisterna magna: normal 4-chamber view: normal RVOT view: normal LVOT view: suboptimally visualized 3-vessel view: normal Heart / Thorax Situs: situs solitus (normal) Diaphragm: normal Stomach: normal Kidneys: normal Bladder: normal Gender: Unspecified Wants to know sex: no Performed By: Mauricio Brito RDMS Read By: Roxann Hunter M.D. [facility] 07-16-2024 Instructions Soraida Keita MA - 07/16/2024 10:39 AM EDT SEQUENTIAL SCREENINGS The [facility] offers sequential screenings for women who are interested in screenings for chromosomal abnormalities and certain defects during a . The sequential screen combines ultrasound and blood tests to determine the risk of chromosomal abnormalities, including Down's Syndrome (Trisomy 21) and Trisomy 18, as well as open neural tube defects including spina bifida. Ultrasound examination is performed between 11 weeks and 13 weeks gestational age. Blood tests are drawn after the ultrasound and again later in the between 15 and 21 weeks gestational age. Please let your physician know if you are interested in this testing. It will require an appointment with our machine technician. This is not an ultrasound performed by a physician in our office during a routine visit. SIGNS AND SYMPTOMS OF LABOR 1. Contractions every 10 minutes or more often 2. Clear, pink, or brownish fluid (water) leaking from vagina 3. Feeling that baby is pushing down, pressure 4. Low, dull backache 5. Cramps that feel like a period 6. Cramps with or without diarrhea If you notice any of the above symptoms, contact our office at [phone] and ask to speak with a nurse. After hours, you can call doctors registry at [phone] OR call [facility] at [phone] and ask to have the doctor substation electrician supervisor paged. If you consider this an emergency, dial 5-3-9 or go to your nearest emergency department. NEED HELP? Are you dealing with a violent or abusive relationship? Are you a victim of rape or sexual assult? Call [facility] ([facility] 24 hour Crisis Hotline: 928.968.7816 or 676-752-4818. MANUAL Your Guide to a Healthy manual is now on-line. Visit [email or web address] to download your free copy documented in this encounter [facility] 07-01-2024 Telephone encounter Note Order signed and faxed. Ashley Ontiveros RN [facility] 07-01-2024 Miscellaneous Notes Order signed and faxed. Ashley Ontiveros RN Written order for breast pump received from [employer]. Placed in [facility] inbox for signature. Bhakti Lentz RN documented in this encounter [facility] 07-01-2024 Progress note Formatting of t his note might be different from the original. SW- No ctx, vb, lof. Good FM PE: Gen- NAD, well appearing Abd- Soft, gravid, NT See flowsheet A/p 34 wk gestation - Velamentous cord insertion: Scheduled for follow up growth US. Ordered for NST's weekly to start at 36 weeks - Discussed upcoming expectations - RTO 2 wks Virginia Valdovinos DO [facility] 07-01-2024 Miscellaneous Notes SW- No ctx, vb, lof. Good FM PE: Gen- NAD, well appearing Abd- Soft, gravid, NT See flowsheet A/p 34 wk gestation - Velamentous cord insertion: Scheduled for follow up growth US. Ordered for NST's weekly to start at 36 weeks - Discussed upcoming expectations - RTO 2 wks Virginia Valdovinos DO documented in this encounter [facility] 07-01-2024 Instructions Lucy Dumont MA - 07/01/2024 11:06 AM EDT SEQUENTIAL SCREENINGS The [facility] offers sequential screenings for women who are interested in screenings for chromosomal abnormalities and certain defects during a . The sequential screen combines ultrasound and blood tests to determine the risk of chromosomal abnormalities, including Down's Syndrome (Trisomy 21) and Trisomy 18, as well as open neural tube defects including spina bifida. Ultrasound examination is performed between 11 weeks and 13 weeks gestational age. Blood tests are drawn after the ultrasound and again later in the between 15 and 21 weeks gestational age. Please let your physician know if you are interested in this testing. It will require an appointment with our machine technician. This is not an ultrasound performed by a physician in our office during a routine visit. SIGNS AND SYMPTOMS OF LABOR 1. Contractions every 10 minutes or more often 2. Clear, pink, or brownish fluid (water) leaking from vagina 3. Feeling that baby is pushing down, pressure 4. Low, dull backache 5. Cramps that feel like a period 6. Cramps with or without diarrhea If you notice any of the above symptoms, contact our office at [phone] and ask to speak with a nurse. After hours, you can call doctors registry at [phone] OR call [facility] at [phone] and ask to have the doctor substation electrician supervisor paged. If you consider this an emergency, dial 2-4-3 or go to your nearest emergency department. NEED HELP? Are you dealing with a violent or abusive relationship? Are you a victim of rape or sexual assult? Call [facility] ([place]) 24 hour Crisis Hotline: 906.296.7481 or 705-888-4526. MANUAL Your Guide to a Healthy manual is now on-line. Visit [email or web address] to download your free copy documented in this encounter [facility] 07-01-2024 Telephone encounter Note Written order for breast pump received from [employer]. Placed in EH inbox for signature. Bhakti Lentz RN [facility] 06-17-2024 Progress note Formatting of t his note might be different from the original. S: Mauricio Oliver is a 29 year old female who presents at 08/11/2024, by Last Menstrual Period for a routine visit. Denies headache, visual changes, chest pain, shortness of breath, vaginal bleeding, leakage of fluid, or dysuria. Feeling well, no complaints. Good movement, No contractions O: See flow sheet Gen: No apparent distress Abd: Gravid, nontender EFW 70% CADENCE 19% ASSESSMENT/PLAN: 1. Encounter for supervision of other normal in third trimester ([facility]) - ICD9: V22.1, ICD10: Z34.83 (primary diagnosis) 2. 31 weeks gestation of ([facility]) - ICD9: V22.2, ICD10: Z3A.31 PTL precautions 3. Heartburn during in third trimester ([facility]) - ICD9: 646.83, 787.1, ICD10: O26.893, R12 Pepcid daily 4. Velamentous insertion of umbilical cord, antepartum ([facility]) - ICD9: 663.83, ICD10: O43.129 EFW 70% Madelyn Jacques MD [facility] 06-17-2024 Miscellaneous Notes S: Mauricio Oliver is a 29 year old female who presents at 08/11/2024, by Last Menstrual Period for a routine visit. Denies headache, visual changes, chest pain, shortness of breath, vaginal bleeding, leakage of fluid, or dysuria. Feeling well, no complaints. Good movement, No contractions O: See flow sheet Gen: No apparent distress Abd: Gravid, nontender EFW 70% CADENCE 19% ASSESSMENT/PLAN: 1. Encounter for supervision of other normal in third trimester ([facility]) - ICD9: V22.1, ICD10: Z34.83 (primary diagnosis) 2. 31 weeks gestation of ([facility]) - ICD9: V22.2, ICD10: Z3A.31 PTL precautions 3. Heartburn during in third trimester ([facility]) - ICD9: 646.83, 787.1, ICD10: O26.893, R12 Pepcid daily 4. Velamentous insertion of umbilical cord, antepartum ([facility]) - ICD9: 663.83, ICD10: O43.129 EFW 70% Madelyn Jacques MD documented in this encounter [facility] 06-17-2024 Note Indication Evaluation of growth Velamentous cord insertion Impression - Single, live, intrauterine . - The biometry is consistent with the assigned gestational dating. - The EFW is 2117 g, at the 70%. AC is at the 93%. - The amniotic fluid volume is normal amount with an MVP of 7 cm and an CADENCE of 18.7 cm. - The placenta is posterior, fundal. - No malformations visualized on a limited survey as detailed below. Recommendations Growth in four weeks Maternal Assessment Height 168 cm Height (ft) 5 ft Height (in) 6 in Physical Exam Initial weight (lb) 157 lb Initial BMI 25.34 kg/m Maternal assessment other: 2 Para 1 REMOTE READ Method Transabdominal ultrasound examination [place] . Number of fetuses: 1 Dating LMP on: 11/05/2023 GA by LMP 32 w + 1 d FRANCO by LMP: 08/11/2024 GA by prior assessment 32 w + 1 d FRANCO by prior assessment: 08/11/2024 Ultrasound examination on: 06/17/2024 GA by U/S based upon: AC, BPD, Femur, HC GA by U/S 33 w + 1 d FRANCO by U/S: 08/04/2024 Assigned: based on stated FRANCO, selected on 05/20/2024 Assigned GA 32 w + 1 d Assigned FRANCO: 08/11/2024 General Evaluation Cardiac activity present. FHR 137 bpm. movements: present. Presentation: cephalic Placenta: Placental site: posterior, fundal Umbilical cord: Cord vessels: 3 vessel cord. Insertion site: velamentous insertion Amniotic fluid: Amount of AF: normal amount. MVP 7.0 cm. CADENCE 18.7 cm. Q1 3.6 cm, Q2 3.6 cm, Q3 4.6 cm, Q4 7.0 cm Growth Overview Exam date GA BPD (mm) HC (mm) AC (mm) FL (mm) HL (mm) EFW (g) 04/02/2024 21w 2d 53.3 82% 199.2 73% 176.3 81% 32.6 25% 31.8 23% 436 60% 05/20/2024 28w 1d 76.3 96% 280.4 88% 259.3 91% 49.9 21% 1344 75% 06/17/2024 32w 1d 84.4 89% 311.7 82% 301 93% 58.1 15% 2117 70% Biometry Standard BPD 84.4 mm 34w 0d 89% Hadlock OFD 109.9 mm 33w 0d 75% Nicolaides HC 311.7 mm 34w 0d 82% Sandhya AC 301.0 mm 34w 0d 93% Hadlock Femur 58.1 mm 30w 2d 15% Sandhya EFW 2,117 g 32w 6d 70% Hadlock EFW (lb) 4 lb EFW (oz) 11 oz EFW by: Hadlock (HC-AC-FL) Extended Director Of [employer] Services 4.7 mm Extremities / Bony Struc FL / HC 0.19 Other Structures FHR 137 bpm Anatomy Lateral ventricles: normal Cavum septi pellucidi: normal Cerebellum: normal Cisterna magna: normal 4-chamber view: normal RVOT view: normal LVOT view: normal 3-vessel view: normal Heart / Thorax Situs: situs solitus (normal) Diaphragm: normal Stomach: normal Kidneys: normal Bladder: normal Gender: Unspecified Wants to know sex: no Performed By: Lalitha Jacobs RDMS, RVT Read By: Roxann Hunter M.D. [facility] 06-17-2024 Instructions Lila Armstrong LPN - 06/17/2024 2:25 PM EDT SEQUENTIAL SCREENINGS The [facility] offers sequential screenings for women who are interested in screenings for chromosomal abnormalities and certain defects during a . The sequential screen combines ultrasound and blood tests to determine the risk of chromosomal abnormalities, including Down's Syndrome (Trisomy 21) and Trisomy 18, as well as open neural tube defects including spina bifida. Ultrasound examination is performed between 11 weeks and 13 weeks gestational age. Blood tests are drawn after the ultrasound and again later in the between 15 and 21 weeks gestational age. Please let your physician know if you are interested in this testing. It will require an appointment with our machine technician. This is not an ultrasound performed by a physician in our office during a routine visit. SIGNS AND SYMPTOMS OF LABOR 1. Contractions every 10 minutes or more often 2. Clear, pink, or brownish fluid (water) leaking from vagina 3. Feeling that baby is pushing down, pressure 4. Low, dull backache 5. Cramps that feel like a period 6. Cramps with or without diarrhea If you notice any of the above symptoms, contact our office at [phone] and ask to speak with a nurse. After hours, you can call doctors registry at [phone] OR call [facility] at [phone] and ask to have the doctor substation electrician supervisor paged. If you consider this an emergency, dial 91-3 or go to your nearest emergency department. NEED HELP? Are you dealing with a violent or abusive relationship? Are you a victim of rape or sexual assult? Call [facility] ([place]) 24 hour Crisis Hotline: 652.601.9711 or 347-961-4242. MANUAL Your Guide to a Healthy manual is now on-line. Visit [email or web address] to download your free copy documented in this encounter [facility] 06-03-2024 Progress note Formatting of t his note might be different from the original. S: Mauricio Oliver is a 29 year old female who presents at 30 weeks for a routine visit. Positive movements. Denies headache, visual changes, chest pain, shortness of breath, vaginal bleeding, leakage of fluid, or dysuria. Feeling well, no complaints. O: See flow sheet Gen: No apparent distress Abd: Gravid, nontender S=D ASSESSMENT/PLAN: 1. 30 weeks gestation of ([facility]) - ICD9: V22.2, ICD10: Z3A.30 (primary diagnosis) 2. Heartburn during in third trimester 3. Rubella non-immune status, antepartum 4. Velamentous insertion of umbilical cord, antepartum 5. Encounter for supervision of other normal in third trimester - Growth US - next visit - Continue Pepcid 20 mg PO- acid reflux improved - Reviewed 3 hour GTT results - normal - PTL precautions reviewed - RTO 2 weeks Lacey Ybarra APRN.CNM [facility] 06-03-2024 Miscellaneous Notes S: Mauricio Oliver is a 29 year old female who presents at 30 weeks for a routine visit. Positive movements. Denies headache, visual changes, chest pain, shortness of breath, vaginal bleeding, leakage of fluid, or dysuria. Feeling well, no complaints. O: See flow sheet Gen: No apparent distress Abd: Gravid, nontender S=D ASSESSMENT/PLAN: 1. 30 weeks gestation of ([facility]) - ICD9: V22.2, ICD10: Z3A.30 (primary diagnosis) 2. Heartburn during in third trimester 3. Rubella non-immune status, antepartum 4. Velamentous insertion of umbilical cord, antepartum 5. Encounter for supervision of other normal in third trimester - Growth US - next visit - Continue Pepcid 20 mg PO- acid reflux improved - Reviewed 3 hour GTT results - normal - PTL precautions reviewed - RTO 2 weeks Lacey Ybarra APRN.CNM documented in this encounter [facility] 06-03-2024 Instructions Tere Nolasco MA - 06/03/2024 11:09 AM EDT SEQUENTIAL SCREENINGS The [facility] offers sequential screenings for women who are interested in screenings for chromosomal abnormalities and certain defects during a . The sequential screen combines ultrasound and blood tests to determine the risk of chromosomal abnormalities, including Down's Syndrome (Trisomy 21) and Trisomy 18, as well as open neural tube defects including spina bifida. Ultrasound examination is performed between 11 weeks and 13 weeks gestational age. Blood tests are drawn after the ultrasound and again later in the between 15 and 21 weeks gestational age. Please let your physician know if you are interested in this testing. It will require an appointment with our machine technician. This is not an ultrasound performed by a physician in our office during a routine visit. SIGNS AND SYMPTOMS OF LABOR 1. Contractions every 10 minutes or more often 2. Clear, pink, or brownish fluid (water) leaking from vagina 3. Feeling that baby is pushing down, pressure 4. Low, dull backache 5. Cramps that feel like a period 6. Cramps with or without diarrhea If you notice any of the above symptoms, contact our office at [phone] and ask to speak with a nurse. After hours, you can call doctors registry at [phone] OR call [facility] at [phone] and ask to have the doctor substation electrician supervisor paged. If you consider this an emergency, dial 4-1-4 or go to your nearest emergency department. NEED HELP? Are you dealing with a violent or abusive relationship? Are you a victim of rape or sexual assult? Call [facility] ([place]) 24 hour Crisis Hotline: 224.693.3925 or 805-922-0804. MANUAL Your Guide to a Healthy manual is now on-line. Visit [email or web address] to download your free copy documented in this encounter [facility] 05-20-2024 Progress note Formatting of t his note might be different from the original. SW- pt doing well. No pain, vb, lof. Good FM PE: Gen- NAD, well appearing Abd- Gravid See flowsheet A/p 28 wk gestation - Tdap today - LARC signed - Velamentous insertion of umbilical cord: Serial growth US's ordered. Growth US completed today and final report pending - 28 wk labs today - RTO 2 wks Virginia Valdovinos DO [facility] 05-20-2024 Miscellaneous Notes SW- pt doing well. No pain, vb, lof. Good FM PE: Gen- NAD, well appearing Abd- Gravid See flowsheet A/p 28 wk gestation - Tdap today - LARC signed - Velamentous insertion of umbilical cord: Serial growth US's ordered. Growth US completed today and final report pending - 28 wk labs today - RTO 2 wks Virginia Valdovinos DO documented in this encounter [facility] 05-20-2024 Note Indication Evaluation of growth Velamentous cord insertion Impression REMOTE READ - Single, live, intrauterine . - The biometry is consistent with the assigned gestational dating. - The EFW is 1344 g, at the 75%. AC is at the 91%. - The amniotic fluid volume is normal amount with an MVP of 6.6 cm and an CADENCE of 18.2 cm. - The placenta is posterior, fundal. - No malformations visualized on a limited survey as detailed below. Recommendations Growth in four weeks Maternal Assessment Height 168 cm Height (ft) 5 ft Height (in) 6 in Physical Exam Initial weight (lb) 157 lb Initial BMI 25.34 kg/m Maternal assessment other: 2 Para 1 Method Transabdominal ultrasound examination [place] . Number of fetuses: 1 Dating LMP on: 11/05/2023 GA by LMP 28 w + 1 d FRANCO by LMP: 08/11/2024 GA by prior assessment 28 w + 1 d FRANCO by prior assessment: 08/11/2024 Ultrasound examination on: 05/20/2024 GA by U/S based upon: AC, BPD, Femur, HC GA by U/S 29 w + 3 d FRANCO by U/S: 08/02/2024 Assigned: based on stated FRANCO, selected on 05/20/2024 Assigned GA 28 w + 1 d Assigned FRANCO: 08/11/2024 General Evaluation Cardiac activity present. FHR 133 bpm. movements: present. Presentation: cephalic Placenta: Placental site: posterior, fundal Umbilical cord: Cord vessels: 3 vessel cord. Insertion site: velamentous insertion- fundal Amniotic fluid: Amount of AF: normal amount. MVP 6.6 cm. CADENCE 18.2 cm. Q1 2.5 cm, Q2 6.6 cm, Q3 5.4 cm, Q4 3.7 cm Growth Overview Exam date GA BPD (mm) HC (mm) AC (mm) FL (mm) HL (mm) EFW (g) 04/02/2024 21w 2d 53.3 82% 199.2 73% 176.3 81% 32.6 25% 31.8 23% 436 60% 05/20/2024 28w 1d 76.3 96% 280.4 88% 259.3 91% 49.9 21% 1344 75% Biometry Standard BPD 76.3 mm 30w 4d 96% Hadlock OFD 99.3 mm 29w 2d 89% Nicolaides HC 280.4 mm 30w 0d 88% Sandhya AC 259.3 mm 30w 1d 91% Hadlock Femur 49.9 mm 27w 0d 21% Sandhya EFW 1,344 g 28w 6d 75% Hadlock EFW (lb) 2 lb EFW (oz) 15 oz EFW by: Hadlock (HC-AC-FL) Extended Director Of Career Services 4.5 mm Extremities / Bony Struc FL / HC 0.18 Other Structures FHR 133 bpm Anatomy Lateral ventricles: normal Cavum septi pellucidi: normal Cerebellum: normal Cisterna magna: normal 4-chamber view: normal RVOT view: normal LVOT view: normal 3-vessel view: normal Heart / Thorax Situs: situs solitus (normal) Diaphragm: normal Stomach: normal Kidneys: normal Bladder: normal Gender: Unspecified Wants to know sex: no Performed By: Lalitha Jacobs RDMS, RVT Read By: Roxann Hunter M.D. [facility] 05-20-2024 Note HNO ID: [id number] Author: LUCY DUMONT MA Service: ? Author Type: Film Developer Type: Progress Notes Filed: 05/20/2024 12:34 Note Text: Patient identified by name and date of . Mauricio Oliver presents today for a vaccination of Tdap. Patient denies an allergy to latex: yes Patient denies a severe (life-threatening) allergy to a previous dose of Tdap, DTP, DTaP, DT or Td vaccine. Yes Patient denies history of epilepsy or neurological problems: Yes Patient is afebrile and denies being moderately or severely ill: Yes Patient denies history of Guillain-Dubach Syndrome (a severe paralytic illness): Yes Tdap Adacel injection was given without incident. See immunizations for details of immunizations administered today. VIS sheet provided: Yes Provider Virginia Valdovinos DO was present in office at time of injection. Lucy Dumont MA [facility] 05-20-2024 History of Present illness Narrative Patient identified by name and date of . Mauricio Oliver presents today for a vaccination of Tdap. Patient denies an allergy to latex: yes Patient denies a severe (life-threatening) allergy to a previous dose of Tdap, DTP, DTaP, DT or Td vaccine. Yes Patient denies history of epilepsy or neurological problems: Yes Patient is afebrile and denies being moderately or severely ill: Yes Patient denies history of Guillain-Dubach Syndrome (a severe paralytic illness): Yes Tdap Adacel injection was given without incident. See immunizations for details of immunizations administered today. VIS sheet provided: Yes Provider Virginia Valdovinos DO was present in office at time of injection. Lucy Dumont MA documented in this encounter [facility] 05-20-2024 Instructions Lucy Dumont MA - 05/20/2024 11:11 AM EDT SEQUENTIAL SCREENINGS The [facility] offers sequential screenings for women who are interested in screenings for chromosomal abnormalities and certain defects during a . The sequential screen combines ultrasound and blood tests to determine the risk of chromosomal abnormalities, including Down's Syndrome (Trisomy 21) and Trisomy 18, as well as open neural tube defects including spina bifida. Ultrasound examination is performed between 11 weeks and 13 weeks gestational age. Blood tests are drawn after the ultrasound and again later in the between 15 and 21 weeks gestational age. Please let your physician know if you are interested in this testing. It will require an appointment with our machine technician. This is not an ultrasound performed by a physician in our office during a routine visit. SIGNS AND SYMPTOMS OF LABOR 1. Contractions every 10 minutes or more often 2. Clear, pink, or brownish fluid (water) leaking from vagina 3. Feeling that baby is pushing down, pressure 4. Low, dull backache 5. Cramps that feel like a period 6. Cramps with or without diarrhea If you notice any of the above symptoms, contact our office at [phone] and ask to speak with a nurse. After hours, you can call doctors registry at [phone] OR call [facility] at [phone] and ask to have the doctor substation electrician supervisor paged. If you consider this an emergency, dial 10-21- or go to your nearest emergency department. NEED HELP? Are you dealing with a violent or abusive relationship? Are you a victim of rape or sexual assult? Call [facility] ([place]) 24 hour Crisis Hotline: 638.474.6403 or 898-045-9463. MANUAL Your Guide to a Healthy manual is now on-line. Visit [email or web address] to download your free copy documented in this encounter [facility] 04-30-2024 Progress note Formatting of t his note might be different from the original. S: Mauricio Oliver is a 28 year old female who presents at 08/11/2024, by Last Menstrual Period for a routine visit. Denies headache, visual changes, chest pain, shortness of breath, vaginal bleeding, leakage of fluid, or dysuria. Feeling well, no complaints. Good movement, No contractions O: See flow sheet Gen: No apparent distress Abd: Gravid, nontender Will scheduled growth at 28 weeks Reviewed labs at 28 weeks ASSESSMENT/PLAN: 1. 25 weeks gestation of - ICD9: V22.2, ICD10: Z3A.25 (primary diagnosis) - SYPHILIS TREPONEMAL W/REFLEX - ANEMIA REFLEX PANEL 2. 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 Encounter for supervision of other normal in second trimester - ICD9: V22.1, ICD10: Z34.82 4. Heartburn during in second trimester - ICD9: 646.83, 787.1, ICD10: O26.892, R12 5. Rubella non-immune status, antepartum - ICD9: 646.83, V15.83, ICD10: O09.899, Z28.39 6. Screening for diabetes mellitus - ICD9: V77.1, ICD10: Z13.1 - GESTATIONAL GLUCOSE SCREEN, 1-HOUR, 50 GRAM, NON-FASTING Madelyn Jacques MD [facility] 04-30-2024 Miscellaneous Notes S: Mauricio Oliver is a 28 year old female who presents at 08/11/2024, by Last Menstrual Period for a routine visit. Denies headache, visual changes, chest pain, shortness of breath, vaginal bleeding, leakage of fluid, or dysuria. Feeling well, no complaints. Good movement, No contractions O: See flow sheet Gen: No apparent distress Abd: Gravid, nontender Will scheduled growth at 28 weeks Reviewed labs at 28 weeks ASSESSMENT/PLAN: 1. 25 weeks gestation of - ICD9: V22.2, ICD10: Z3A.25 (primary diagnosis) - SYPHILIS TREPONEMAL W/REFLEX - ANEMIA REFLEX PANEL 2. 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 Encounter for supervision of other normal in second trimester - ICD9: V22.1, ICD10: Z34.82 4. Heartburn during in second trimester - ICD9: 646.83, 787.1, ICD10: O26.892, R12 5. Rubella non-immune status, antepartum - ICD9: 646.83, V15.83, ICD10: O09.899, Z28.39 6. Screening for diabetes mellitus - ICD9: V77.1, ICD10: Z13.1 - GESTATIONAL GLUCOSE SCREEN, 1-HOUR, 50 GRAM, NON-FASTING Madelyn Jacques MD documented in this encounter [facility] 04-30-2024 Instructions Tere Nolasco MA - 04/30/2024 2:17 PM EDT SEQUENTIAL SCREENINGS The [facility] offers sequential screenings for women who are interested in screenings for chromosomal abnormalities and certain defects during a . The sequential screen combines ultrasound and blood tests to determine the risk of chromosomal abnormalities, including Down's Syndrome (Trisomy 21) and Trisomy 18, as well as open neural tube defects including spina bifida. Ultrasound examination is performed between 11 weeks and 13 weeks gestational age. Blood tests are drawn after the ultrasound and again later in the between 15 and 21 weeks gestational age. Please let your physician know if you are interested in this testing. It will require an appointment with our machine technician. This is not an ultrasound performed by a physician in our office during a routine visit. SIGNS AND SYMPTOMS OF LABOR 1. Contractions every 10 minutes or more often 2. Clear, pink, or brownish fluid (water) leaking from vagina 3. Feeling that baby is pushing down, pressure 4. Low, dull backache 5. Cramps that feel like a period 6. Cramps with or without diarrhea If you notice any of the above symptoms, contact our office at [phone] and ask to speak with a nurse. After hours, you can call doctors registry at [phone] OR call [facility] at [phone] and ask to have the doctor substation electrician supervisor paged. If you consider this an emergency, dial 1-8-5 or go to your nearest emergency department. NEED HELP? Are you dealing with a violent or abusive relationship? Are you a victim of rape or sexual assult? Call [facility] ([place]) 24 hour Crisis Hotline: 804.144.2028 or 118-926-8667. MANUAL Your Guide to a Healthy manual is now on-line. Visit [email or web address] to download your free copy documented in this encounter [facility] 04-02-2024 Progress note Formatting of t his note might be different from the original. FLORECITA-S: Mauricio Oliver is a 28 year old female who presents at 21w2d with FRANCO:08/11/2024, by Last Menstrual Period for a routine visit. Denies headache, visual changes, chest pain, shortness of breath, vaginal bleeding, leakage of fluid, or dysuria. Feeling well, no complaints. Abdominal rash and itching resolved. O: See flow sheet Gen: No apparent distress Abd: Gravid, nontender ASSESSMENT/PLAN: 1. Encounter for supervision of other normal in second trimester -Continue PNV and ASA -Anatomy US completed, possible velamentous insertion. Reviewed and will await formal results and recommendations. 2. 21 weeks gestation of 3. Heartburn during in second trimester -Coping at this time 4. Rubella non-immune status, antepartum PTL precautions reviewed and when to call RTO in 4 weeks Michelle Gould APRN.CNM [facility] 04-02-2024 Miscellaneous Notes FLORECITA-S: Mauricio Oliver is a 28 year old female who presents at 21w2d with FRANCO:08/11/2024, by Last Menstrual Period for a routine visit. Denies headache, visual changes, chest pain, shortness of breath, vaginal bleeding, leakage of fluid, or dysuria. Feeling well, no complaints. Abdominal rash and itching resolved. O: See flow sheet Gen: No apparent distress Abd: Gravid, nontender ASSESSMENT/PLAN: 1. Encounter for supervision of other normal in second trimester -Continue PNV and ASA -Anatomy US completed, possible velamentous insertion. Reviewed and will await formal results and recommendations. 2. 21 weeks gestation of 3. Heartburn during in second trimester -Coping at this time 4. Rubella non-immune status, antepartum PTL precautions reviewed and when to call RTO in 4 weeks Michelle Gould APRN.CNM documented in this encounter [facility] 04-02-2024 Tere Vergara MA - 04/02/2024 3:13 PM EST SEQUENTIAL SCREENINGS The [facility] offers sequential screenings for women who are interested in screenings for chromosomal abnormalities and certain defects during a . The sequential screen combines ultrasound and blood tests to determine the risk of chromosomal abnormalities, including Down's Syndrome (Trisomy 21) and Trisomy 18, as well as open neural tube defects including spina bifida. Ultrasound examination is performed between 11 weeks and 13 weeks gestational age. Blood tests are drawn after the ultrasound and again later in the between 15 and 21 weeks gestational age. Please let your physician know if you are interested in this testing. It will require an appointment with our machine technician. This is not an ultrasound performed by a physician in our office during a routine visit. SIGNS AND SYMPTOMS OF LABOR 1. Contractions every 10 minutes or more often 2. Clear, pink, or brownish fluid (water) leaking from vagina 3. Feeling that baby is pushing down, pressure 4. Low, dull backache 5. Cramps that feel like a period 6. Cramps with or without diarrhea If you notice any of the above symptoms, contact our office at [phone] and ask to speak with a nurse. After hours, you can call doctors registry at [phone] OR call [facility] at [phone] and ask to have the doctor substation electrician supervisor paged. If you consider this an emergency, dial 91- or go to your nearest emergency department. NEED HELP? Are you dealing with a violent or abusive relationship? Are you a victim of rape or sexual assult? Call [facility] [place] ([place]) 24 hour Crisis Hotline: 414.483.5311 or 304-553-9248. MANUAL Your Guide to a Healthy manual is now on-line. Visit [email or web address].org/HealthyPregna ncyGuide to download your free copy documented in this encounter [facility] 03-22-2024 Progress note Formatting of t his note might be different from the original. DM-Pt doing well. Denies vaginal Bleeding, Leaking fluid, or regular Contractions. Pt reports good movement. C/o new skin rash in upper abdominal area - in skin folds- itchy- tried benadryl got mild relief. No changes with soaps or detergents. Mild itching on palms of hands- nothing on feet. Physical Exam: Gen: female in no apparent distress Abd: soft, Gravid. Non tender to palpation. See flow sheet. PUPPS rash on abdomen @ 19.5 Assessment & Plan Encounter for supervision of other normal in second trimester Pruritus of in second trimester Orders: BILE ACIDS FRACT BLD; Future BILE ACIDS, TOTAL; Future ASPARTATE AMINOTRANSFERASE/SGOT; Future ALANINE AMINOTRANSFERASE / SGPT; Future PUPPP (pruritic urticarial papules and plaques of ) Discussed symptom relief if no relief with zyrtec pt will call or message and will order vistaril. 19 weeks gestation of Anatomy us scheduled Leslye Crowley MD [facility] 03-22-2024 Miscellaneous Notes DM-Pt doing well. Denies vaginal Bleeding, Leaking fluid, or regular Contractions. Pt reports good movement. C/o new skin rash in upper abdominal area - in skin folds- itchy- tried benadryl got mild relief. No changes with soaps or detergents. Mild itching on palms of hands- nothing on feet. Physical Exam: Gen: female in no apparent distress Abd: soft, Gravid. Non tender to palpation. See flow sheet. PUPPS rash on abdomen @ 19.5 Assessment & Plan Encounter for supervision of other normal in second trimester Pruritus of in second trimester Orders: BILE ACIDS FRACT BLD; Future BILE ACIDS, TOTAL; Future ASPARTATE AMINOTRANSFERASE/SGOT; Future ALANINE AMINOTRANSFERASE / SGPT; Future PUPPP (pruritic urticarial papules and plaques of ) Discussed symptom relief if no relief with zyrtec pt will call or message and will order vistaril. 19 weeks gestation of Anatomy us scheduled Leslye Crowley MD documented in this encounter [facility] 03-22-2024 Instructions Elisa Morin MA - 03/22/2024 8:16 AM EST SEQUENTIAL SCREENINGS The [facility] offers sequential screenings for women who are interested in screenings for chromosomal abnormalities and certain defects during a . The sequential screen combines ultrasound and blood tests to determine the risk of chromosomal abnormalities, including Down's Syndrome (Trisomy 21) and Trisomy 18, as well as open neural tube defects including spina bifida. Ultrasound examination is performed between 11 weeks and 13 weeks gestational age. Blood tests are drawn after the ultrasound and again later in the between 15 and 21 weeks gestational age. Please let your physician know if you are interested in this testing. It will require an appointment with our machine technician. This is not an ultrasound performed by a physician in our office during a routine visit. SIGNS AND SYMPTOMS OF LABOR 1. Contractions every 10 minutes or more often 2. Clear, pink, or brownish fluid (water) leaking from vagina 3. Feeling that baby is pushing down, pressure 4. Low, dull backache 5. Cramps that feel like a period 6. Cramps with or without diarrhea If you notice any of the above symptoms, contact our office at [phone] and ask to speak with a nurse. After hours, you can call doctors registry at [phone] OR call [facility] at [phone] and ask to have the doctor substation electrician supervisor paged. If you consider this an emergency, dial 9-1-0 or go to your nearest emergency department. NEED HELP? Are you dealing with a violent or abusive relationship? Are you a victim of rape or sexual assult? Call [facility] ([place]) 24 hour Crisis Hotline: 898.386.8405 or 416-175-3129. MANUAL Your Guide to a Healthy manual is now on-line. Visit [email or web address]/HealthyPregna ncyGuide to download your free copy documented in this encounter [facility] 03-06-2024 Progress note Formatting of t his note might be different from the original. S: Mauricio Oliver is a 28 year old female who presents at 17 weeks gestation for a routine visit. Positive movements. Increased heartburn. Some relief from TUMS. Denies headache, visual changes, chest pain, shortness of breath, vaginal bleeding, leakage of fluid, or dysuria. Feeling well, no complaints. O: See flow sheet Gen: No apparent distress Abd: Gravid, nontender ASSESSMENT/PLAN: 1. 17 weeks gestation of - ICD9: V22.2, ICD10: Z3A.17 (primary diagnosis) 2. Encounter for supervision of other normal in second trimester - ICD9: V22.1, ICD10: Z34.82 3. Heartburn in - Continue ASA and vitamin - TUMS as needed - May try Pepcid 20 mg Po Daily - RTO 4 weeks for anatomy US and HERBERTH Ybarra APRN.CNM [facility] 03-06-2024 Miscellaneous Notes S: Mauricio Oliver is a 28 year old female who presents at 17 weeks gestation for a routine visit. Positive movements. Increased heartburn. Some relief from TUMS. Denies headache, visual changes, chest pain, shortness of breath, vaginal bleeding, leakage of fluid, or dysuria. Feeling well, no complaints. O: See flow sheet Gen: No apparent distress Abd: Gravid, nontender ASSESSMENT/PLAN: 1. 17 weeks gestation of - ICD9: V22.2, ICD10: Z3A.17 (primary diagnosis) 2. Encounter for supervision of other normal in second trimester - ICD9: V22.1, ICD10: Z34.82 3. Heartburn in - Continue ASA and vitamin - TUMS as needed - May try Pepcid 20 mg Po Daily - RTO 4 weeks for anatomy and HERBERTH Ybarra APRN.CNM documented in this encounter [facility] 03-06-2024 Instructions Lila Armstrong LPN - 03/06/2024 9:39 AM EST SEQUENTIAL SCREENINGS The [facility] offers sequential screenings for women who are interested in screenings for chromosomal abnormalities and certain defects during a . The sequential screen combines ultrasound and blood tests to determine the risk of chromosomal abnormalities, including Down's Syndrome (Trisomy 21) and Trisomy 18, as well as open neural tube defects including spina bifida. Ultrasound examination is performed between 11 weeks and 13 weeks gestational age. Blood tests are drawn after the ultrasound and again later in the between 15 and 21 weeks gestational age. Please let your physician know if you are interested in this testing. It will require an appointment with our machine technician. This is not an ultrasound performed by a physician in our office during a routine visit. SIGNS AND SYMPTOMS OF LABOR 1. Contractions every 10 minutes or more often 2. Clear, pink, or brownish fluid (water) leaking from vagina 3. Feeling that baby is pushing down, pressure 4. Low, dull backache 5. Cramps that feel like a period 6. Cramps with or without diarrhea If you notice any of the above symptoms, contact our office at [phone] and ask to speak with a nurse. After hours, you can call doctors registry at [phone] OR call [facility] at [phone] and ask to have the doctor substation electrician supervisor paged. If you consider this an emergency, dial 0-4-3 or go to your nearest emergency department. NEED HELP? Are you dealing with a violent or abusive relationship? Are you a victim of rape or sexual assult? Call [facility] ([place]) 24 hour Crisis Hotline: 125.966.3122 or 520-834-0847. MANUAL Your Guide to a Healthy manual is now on-line. Visit [facility].org/HealthyPregna ncyGuide to download your free copy documented in this encounter [facility] 02-07-2024 Progress note Formatting of t his note might be different from the original. S: Mauricio Oliver is a 28 year old female who presents at 13 weeks gestation for a routine visit. Just completed NT US. Denies headache, visual changes, chest pain, shortness of breath, vaginal bleeding, leakage of fluid, or dysuria. Feeling well, no complaints. O: See flow sheet Gen: No apparent distress Abd: Gravid, nontender ASSESSMENT/PLAN: 1. Encounter for supervision of other normal in second trimester - ICD9: V22.1, ICD10: Z34.82 (primary diagnosis) 2. 13 weeks gestation of - ICD9: V22.2, ICD10: Z3A.13 - PN labs today - Declines aneuploidy screening - RTO 4 weeks or sooner if needed Lacey Ybarra APRN.CNM [facility] Work Phone: 02-07-2024 Miscellaneous Notes S: Mauricio Oliver is a 28 year old female who presents at 13 weeks gestation for a routine visit. Just completed NT US. Denies headache, visual changes, chest pain, shortness of breath, vaginal bleeding, leakage of fluid, or dysuria. Feeling well, no complaints. O: See flow sheet Gen: No apparent distress Abd: Gravid, nontender ASSESSMENT/PLAN: 1. Encounter for supervision of other normal in second trimester - ICD9: V22.1, ICD10: Z34.82 (primary diagnosis) 2. 13 weeks gestation of - ICD9: V22.2, ICD10: Z3A.13 - PN labs today - Declines aneuploidy screening - RTO 4 weeks or sooner if needed Lacey Ybarra APRN.CNM documented in this encounter [facility] 02-07-2024 Tosrten Wolff MA - 02/07/2024 9:38 AM EST SEQUENTIAL SCREENINGS The [facility] offers sequential screenings for women who are interested in screenings for chromosomal abnormalities and certain defects during a . The sequential screen combines ultrasound and blood tests to determine the risk of chromosomal abnormalities, including Down's Syndrome (Trisomy 21) and Trisomy 18, as well as open neural tube defects including spina bifida. Ultrasound examination is performed between 11 weeks and 13 weeks gestational age. Blood tests are drawn after the ultrasound and again later in the between 15 and 21 weeks gestational age. Please let your physician know if you are interested in this testing. It will require an appointment with our machine technician. This is not an ultrasound performed by a physician in our office during a routine visit. SIGNS AND SYMPTOMS OF LABOR 1. Contractions every 10 minutes or more often 2. Clear, pink, or brownish fluid (water) leaking from vagina 3. Feeling that baby is pushing down, pressure 4. Low, dull backache 5. Cramps that feel like a period 6. Cramps with or without diarrhea If you notice any of the above symptoms, contact our office at [phone] and ask to speak with a nurse. After hours, you can call doctors registry at [phone] OR call [facility] at [phone] and ask to have the doctor substation electrician supervisor paged. If you consider this an emergency, dial 9-1-2 or go to your nearest emergency department. NEED HELP? Are you dealing with a violent or abusive relationship? Are you a victim of rape or sexual assult? Call [facility] ([place]) 24 hour Crisis Hotline: 897.559.3600 or 097-658-2641. MANUAL Your Guide to a Healthy manual is now on-line. Visit [facility].org/HealthyPregna ncyGuide to download your free copy documented in this encounter [facility] 12-28-2023 Instructions Shanna Sy APRN.[facility] - 12/28/2023 11:49 AM EST Images from the original note were not included. Psychotherapy Services at [facility] Call Behavioral Health Access Line at [phone] to schedule Individual psychotherapy In-person or virtual Wait time for first evaluation may be 12 or more weeks. Wait list spots may be available. Due to the high volume of patients this option is recommended if you are looking for short term acute symptom coping strategies. 8-358-8-FFSY1YZGV - Violet Maternal Mental Health Hotline If you are in suicidal crisis, please call or text 7-860-938-TALK ( ) or visit the National Suicide Prevention Lifeline website. mchb.unm psychiatric centera.gov If you are in crisis, call 911 or go to your nearest Emergency Department Here are some links for wonderful Providers here in the community and surrounding areas. Do not hesitate to contact their offices, many are offering virtual visits during this time. Psychotherapy Services outside of [facility] Support International Online Provider Directory https://Zerimar Ventures.Gainsight/ - can assist in finding providers in your area that might be more extensive then the list below. [facility] [place], [place] [address] [place] [address] [facility] [address] [place] [address] [facility] [address] [place] [address] [facility] [address] [place] [address] Rosa Horta MD [address] [place], [place] [address] [facility] [address] [facility] [place] [address] [facility] [address] [place] [address] [facility] [place] / [place] [phone]/ [phone] Carla [facility] [address] [facility] [phone] [facility] Counseling and Mediation [place] / [place] [phone] [facility] [address] [place] [address]/ [place] [phone] Abdelrahman Mohan, YOLI, CLC [facility] Workshops, telehealth and at home visits. [phone] Humanistic counseling center 20 locations [facility], [place], [place], [place], [place], [place], [facility], [place], [place], [place], [place], [place], [place], [facility], [place], [place] ,[facility], [place], [place],[facility], [facility], [place], [facility], [place], [place] www.humanisticcounscamden clark medical centercenter.co [phone] Psychotherapy resources outside of [facility] are listed below [facility] Web: https://wwwRingz.TV/ Support International Online Provider Directory https://uberMetrics Technologies GmbH/ [facility] https://insightcoTotalHousehold/ Partners [facility] Wellness Web: https://Agrar33/ [place] for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 first trimester- Primary 7 weeks gestation of state, incidental with uncertain dates in first trimester History of depression Personal history of other mental disorder History of anxiety Personal history of other mental disorder Screening for cervical cancer Screening for malignant neoplasm of the cervix documented in this encounter [facility] Diagnosis Encounter for supervision of other normal in second trimester- Primary 13 weeks gestation of state, incidental documented [facility] this [facility] Diagnosis Encounter for screening for malformation using ultrasound- Primary 13 weeks gestation of state, incidental documented [facility] Diagnosis 17 weeks gestation of - Primary state, incidental Encounter for supervision of other normal in second trimester Heartburn during in second trimester documented in this [facility]* Diagnosis Encounter for supervision of other normal in second trimester- Primary Pruritus of in second trimester PUPPP (pruritic urticarial papules and plaques of ) Other specified complication of , unspecified as to episode of care 19 weeks gestation of state, incidental * Assessment & Plan Note - Leslye Rodriguez MD - 03/22/2024 8:32 AM EST Associated Problem(s): Supervision of normal documented in this encounter [facility] note* Diagnosis Encounter for supervision of other normal in second trimester- Primary Pruritus of in second trimester PUPPP (pruritic urticarial papules and plaques of ) Other specified complication of , unspecified as to episode of care 19 weeks gestation of state, incidental Encounter for supervision of other normal in second trimester- Primary 21 weeks gestation of state, incidental Heartburn during in second trimester Rubella non-immune status, antepartum Other specified complication, antepartum documented in this [facility] Diagnosis Encounter for supervision of other normal in second trimester- Primary Pruritus of in second trimester PUPPP (pruritic urticarial papules and plaques of ) Other specified complication of , unspecified as to episode of care 19 weeks gestation of state, incidental Encounter for anatomic survey- Primary 21 weeks gestation of state, incidental Velamentous insertion of umbilical cord in third trimester Other umbilical cord complications during labor and delivery, unspecified as to episode of care Velamentous insertion 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 trimester Other umbilical cord complications during labor and delivery, unspecified as to episode of care documented in this encounter [facility] note* Diagnosis Encounter for supervision of other normal in second trimester- Primary Pruritus of in second trimester PUPPP (pruritic urticarial papules and plaques of ) Other specified complication of , unspecified as to episode of care 19 weeks gestation of state, incidental 25 weeks gestation of - Primary state, incidental Velamentous insertion 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 trimester Other umbilical cord complications during labor and delivery, unspecified as to episode of care Encounter for supervision of other normal in second trimester Heartburn during in second trimester Rubella non-immune status, antepartum Other specified complication, antepartum Screening for diabetes mellitus [facility] Diagnosis Encounter for supervision of other normal in second trimester ([facility])- Primary Pruritus of in second trimester ([facility]) PUPPP (pruritic urticarial papules and plaques of ) ([facility]) Other specified complication of , unspecified as to episode of care 19 weeks gestation of ([facility]) state, incidental Encounter for ultrasound to check growth ([facility])- Primary Encounter for routine screening for malformation using ultrasonics Velamentous insertion 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 trimester ([facility]) Other umbilical cord complications during labor and delivery, unspecified as to episode of care 28 weeks gestation of ([facility]) state, incidental documented in this encounter [facility] note* Diagnosis Encounter for supervision of other normal in second trimester ([facility])- Primary Pruritus of in second trimester ([facility]) PUPPP (pruritic urticarial papules and plaques of ) ([facility]) Other specified complication of , unspecified as to episode of care 19 weeks gestation of ([facility]) state, incidental Encounter for supervision of other normal in second trimester ([facility])- Primary 28 weeks gestation of ([facility]) state, incidental Need for vaccination Need for prophylactic vaccination and inoculation against unspecified single disease Velamentous insertion of umbilical cord, antepartum ([facility]) [facility] Diagnosis Encounter for supervision of other normal in second trimester ([facility])- Primary Pruritus of in second trimester ([facility]) PUPPP (pruritic urticarial papules and plaques of ) ([facility]) Other specified complication of , unspecified as to episode of care 19 weeks gestation of ([facility]) state, incidental Velamentous insertion 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 trimester ([facility])- Primary Other umbilical cord complications during labor and delivery, unspecified as to episode of care documented in this encounter [facility] note* Diagnosis Encounter for supervision of other normal in second trimester ([facility])- Primary Pruritus of in second trimester ([facility]) PUPPP (pruritic urticarial papules and plaques of ) ([facility]) Other specified complication of , unspecified as to episode of care 19 weeks gestation of ([facility]) state, incidental 30 weeks gestation of ([facility])- Primary state, incidental Heartburn during in third trimester ([facility]) Rubella non-immune status, antepartum ([facility]) Other specified complication, antepartum Velamentous insertion of umbilical cord, antepartum ([facility]) Encounter for supervision of other normal in third trimester ([facility]) documented in this encounter [facility] note* Diagnosis Encounter for supervision of other normal in second trimester ([facility])- Primary Pruritus of in second trimester ([facility]) PUPPP (pruritic urticarial papules and plaques of ) ([facility]) Other specified complication of , unspecified as to episode of care 19 weeks gestation of ([facility]) state, incidental Encounter for ultrasound to check growth ([facility])- Primary Encounter for routine screening for malformation using ultrasonics Velamentous insertion of umbilical cord, antepartum ([facility]) 32 weeks gestation of ([facility]) state, incidental documented in this encounter [facility] note* Diagnosis Encounter for supervision of other normal in second trimester ([facility])- Primary Pruritus of in second trimester ([facility]) PUPPP (pruritic urticarial papules and plaques of ) ([facility]) Other specified complication of , unspecified as to episode of care 19 weeks gestation of ([facility]) state, incidental Encounter for supervision of other normal in third trimester ([facility])- Primary 31 weeks gestation of ([facility]) state, incidental Heartburn during in third trimester ([facility]) Velamentous insertion of umbilical cord, antepartum ([facility]) documented in this encounter [facility] note* Diagnosis Encounter for supervision of other normal in second trimester ([facility])- Primary Pruritus of in second trimester ([facility]) PUPPP (pruritic urticarial papules and plaques of ) ([facility]) Other specified complication of , unspecified as to episode of care 19 weeks gestation of ([facility]) state, incidental Encounter for supervision of other normal in third trimester ([facility])- Primary 34 weeks gestation of ([facility]) state, incidental Velamentous insertion 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 trimester ([facility]) Other umbilical cord complications during labor and delivery, unspecified as to episode of care [facility] Diagnosis Encounter for supervision of other normal in second trimester ([facility])- Primary Pruritus of in second trimester ([facility]) PUPPP (pruritic urticarial papules and plaques of ) ([facility]) Other specified complication of , unspecified as to episode of care 19 weeks gestation of ([facility]) state, incidental Encounter for ultrasound to check growth ([facility])- Primary Encounter for routine screening for malformation using ultrasonics Velamentous insertion of umbilical cord, antepartum ([facility]) 36 weeks gestation of ([facility]) state, incidental [facility] Diagnosis Encounter for supervision of other normal in second trimester ([facility])- Primary Pruritus of in second trimester ([facility]) PUPPP (pruritic urticarial papules and plaques of ) ([facility]) Other specified complication of , unspecified as to episode of care 19 weeks gestation of ([facility]) state, incidental 36 weeks gestation of ([facility])- Primary state, incidental Encounter for supervision of other normal in third trimester ([facility]) Velamentous insertion of umbilical cord in third trimester ([facility]) Other umbilical cord complications during labor and delivery, unspecified as to episode of care [facility] Diagnosis Encounter for supervision of other normal in second trimester ([facility])- Primary Pruritus of in second trimester ([facility]) PUPPP (pruritic urticarial papules and plaques of ) ([facility]) Other specified complication of , unspecified as to episode of care 19 weeks gestation of ([facility]) state, incidental Abnormal glucose complicating ([facility])- Primary Abnormal maternal glucose tolerance, complicating , childbirth, or the puerperium, unspecified as to episode of care documented [facility] Diagnosis Encounter for supervision of other normal in second trimester ([facility])- Primary Pruritus of in second trimester ([facility]) PUPPP (pruritic urticarial papules and plaques of ) ([facility]) Other specified complication of , unspecified as to episode of care 19 weeks gestation of ([facility]) state, incidental Encounter for supervision of other normal in third trimester ([facility])- Primary 37 weeks gestation of ([facility]) state, incidental Velamentous insertion of umbilical cord in third trimester ([facility]) Other umbilical cord complications during labor and delivery, unspecified as to episode of care [facility] Diagnosis Encounter for supervision of other normal in second trimester ([facility])- Primary Pruritus of in second trimester ([facility]) PUPPP (pruritic urticarial papules and plaques of ) ([facility]) Other specified complication of , unspecified as to episode of care 19 weeks gestation of ([facility]) state, incidental Encounter for supervision of other normal in third trimester ([facility])- Primary 38 weeks gestation of ([facility]) state, incidental Velamentous insertion of umbilical cord in third trimester ([facility]) Other umbilical cord complications during labor and delivery, unspecified as to episode of care documented [facility] Diagnosis Encounter for supervision of other normal in second trimester ([facility])- Primary Pruritus of in second trimester ([facility]) PUPPP (pruritic urticarial papules and plaques of ) ([facility]) Other specified complication of , unspecified as to episode of care 19 weeks gestation of ([facility]) state, incidental Abnormal glucose complicating ([facility])- Primary Abnormal maternal glucose tolerance, complicating , childbirth, or the puerperium, unspecified as to episode of care documented [facility] this encounter [facility]narrative)* Diagnostic Procedure Only (Routine) - New Request Specialty Diagnoses / Procedures Referred By Singh potter Referred To Contact [facility] Diagnoses Encounter for supervision of other normal in first trimester Procedures OBSTETRIC ULTRASOUND WHI US PREG UTERUS AFTER 1ST TRIMEST GESTATION Shanna Sy APRN.CNP [address] [place] [address] [address] Referral ID Status Reason Start Date Expiration Date Visits Requested Visits Authorized [id number] New Request Auto-Generat ed Referral 12/28/2023 12/27/2024 1 1 * Diagnostic Procedure Only (Routine) - Pending Review Specialty Diagnoses / Procedures Referred By Singh potter Referred To Contact [facility] Diagnoses Encounter for supervision of other normal in first trimester 7 weeks gestation of with uncertain dates in first trimester Procedures NUCHAL TRANSLUCENCY WHI US NUCHAL TRANSLUCENCY 1ST GESTATION Shanna Sy APRN.CNP [address] [place] [address] [address] Referral ID Status Reason Start Date Expiration Date Visits Requested Visits Authorized [id number] Pending Review Auto-Generat ed Referral 12/28/2023 12/27/2024 1 1 [facility] Diagnostic Procedure Only (Routine) - Authorized Specialty Diagnoses / Procedures Referred By Singh potter Referred To Contact [facility] Diagnoses Encounter for supervision of other normal in second trimester Procedures OBSTETRIC ULTRASOUND WHI US PREG UTERUS AFTER 1ST TRIMEST GESTATION Lacey Ybarra APRN.CNM [address] [place] [address] [address] Referral ID Status Reason Start Date Expiration Date Visits Requested Visits Authorized [id number] Authorized Auto-Generat ed Referral 03/06/2024 03/06/2025 1 1 [facility] Summary Purpose Family History No Family History Records FoundNo Family History Records FoundNo Family History Records FoundNo Family History Records FoundNo Family History Records FoundNo Family History Records FoundNo Family History Records Found Advance Directives No Advanced Directives Records Found Advance Directive Response Recorded Date/ Time Living Will No November 27 8:56am Power of Emergency Medical Service Coordinator No November 27 021 8:56am Additional Source Comments INFORMATION SOURCE (unrecogn ized section and content) DATE CREATED AUTHOR 10/15/2017 [facility] DATE CREATED AUTHOR AUTHOR'S ORGANIZ ATION 11/25/2018 [facility] DATE CREATED AUTHOR AUTHOR'S ORGANIZ ATION 07/10/2019 [facility] DATE CREATED AUTHOR AUTHOR'S ORGANIZ ATION 12/31/2019 [facility] DATE CREATED AUTHOR AUTHOR'S ORGANIZ ATION 05/31/2024 [facility] DATE CREATED AUTHOR AUTHOR'S ORGANIZ ATION 07/28/2024 [facility] DATE CREATED AUTHOR AUTHOR'S ORGANIZ ATION 08/03/2024 [facility] Gallegos Goals (unrecognized section and content) Goals may be documented in a n alternate section Source Comments (unrecognize d section and content) In the event this informatio n is protected by the Federal Confidentiality of Alcohol and Drug Abuse Patient Records regulations: The Federal rules restrict any use of the information to criminally investigate or prosecute any alcohol or drug abuse patient.[facility] the event this information is protected by the Federal Confidentiality of Alcohol and Drug Abuse Patient Records regulations: The Federal rules restrict any use of the information to criminally investigate or prosecute any alcohol or drug abuse patient.[facility] Hospital[facility] the event this information is protected by the Federal Confidentiality of Alcohol and Drug Abuse Patient Records regulations: The Federal rules restrict any use of the information to criminally investigate or prosecute any alcohol or drug abuse patient.[facility] HospitalIn the event this information is protected by the Federal Confidentiality of Alcohol and Drug Abuse Patient Records regulations: The Federal rules restrict any use of the information to criminally investigate or prosecute any alcohol or drug abuse patient.[facility] Hospital[facility] the event this information is protected by the Federal Confidentiality of Alcohol and Drug Abuse Patient Records regulations: The Federal rules restrict any use of the information to criminally investigate or prosecute any alcohol or drug abuse patient.[facility] HospitalIn the event this information is protected by the Federal Confidentiality of Alcohol and Drug Abuse Patient Records regulations: The Federal rules restrict any use of the information to criminally investigate or prosecute any alcohol or drug abuse patient.[facility] Hospital[facility] the event this information is protected by the Federal Confidentiality of Alcohol and Drug Abuse Patient Records regulations: The Federal rules restrict any use of the information to criminally investigate or prosecute any alcohol or drug abuse patient.[facility] Hospital[facility] the event this information is protected by the Federal Confidentiality of Alcohol and Drug Abuse Patient Records regulations: The Federal rules restrict any use of the information to criminally investigate or prosecute any alcohol or drug abuse patient.[facility] HospitalIn the event this information is protected by the Federal Confidentiality of Alcohol and Drug Abuse Patient Records regulations: The Federal rules restrict any use of the information to criminally investigate or prosecute any alcohol or drug abuse patient.[facility] HospitalIn the event this information is protected by the Federal Confidentiality of Alcohol and Drug Abuse Patient Records regulations: The Federal rules restrict any use of the information to criminally investigate or prosecute any alcohol or drug abuse patient.[facility] HospitalIn the event this information is protected by the Federal Confidentiality of Alcohol and Drug Abuse Patient Records regulations: The Federal rules restrict any use of the information to criminally investigate or prosecute any alcohol or drug abuse patient.[facility] HospitalIn the event this information is protected by the Federal Confidentiality of Alcohol and Drug Abuse Patient Records regulations: The Federal rules restrict any use of the information to criminally investigate or prosecute any alcohol or drug abuse patient.[facility] HospitalIn the event this information is protected by the Federal Confidentiality of Alcohol and Drug Abuse Patient Records regulations: The Federal rules restrict any use of the information to criminally investigate or prosecute any alcohol or drug abuse patient.[facility] HospitalIn the event this information is protected by the Federal Confidentiality of Alcohol and Drug Abuse Patient Records regulations: The Federal rules restrict any use of the information to criminally investigate or prosecute any alcohol or drug abuse patient.[facility] HospitalIn the event this information is protected by the Federal Confidentiality of Alcohol and Drug Abuse Patient Records regulations: The Federal rules restrict any use of the information to criminally investigate or prosecute any alcohol or drug abuse patient.[facility] HospitalIn the event this information is protected by the Federal Confidentiality of Alcohol and Drug Abuse Patient Records regulations: The Federal rules restrict any use of the information to criminally investigate or prosecute any alcohol or drug abuse patient.[facility] HospitalIn the event this information is protected by the Federal Confidentiality of Alcohol and Drug Abuse Patient Records regulations: The Federal rules restrict any use of the information to criminally investigate or prosecute any alcohol or drug abuse patient.[facility] HospitalIn the event this information is protected by the Federal Confidentiality of Alcohol and Drug Abuse Patient Records regulations: The Federal rules restrict any use of the information to criminally investigate or prosecute any alcohol or drug abuse patient.[facility] HospitalIn the event this information is protected by the Federal Confidentiality of Alcohol and Drug Abuse Patient Records regulations: The Federal rules restrict any use of the information to criminally investigate or prosecute any alcohol or drug abuse patient.[facility] HospitalIn the event this information is protected by the Federal Confidentiality of Alcohol and Drug Abuse Patient Records regulations: The Federal rules restrict any use of the information to criminally investigate or prosecute any alcohol or drug abuse patient.[facility] HospitalIn the event this information is protected by the Federal Confidentiality of Alcohol and Drug Abuse Patient Records regulations: The Federal rules restrict any use of the information to criminally investigate or prosecute any alcohol or drug abuse patient.[facility] HospitalIn the event this information is protected by the Federal Confidentiality of Alcohol and Drug Abuse Patient Records regulations: The Federal rules restrict any use of the information to criminally investigate or prosecute any alcohol or drug abuse patient.[facility] HospitalIn the event this information is protected by the Federal Confidentiality of Alcohol and Drug Abuse Patient Records regulations: The Federal rules restrict any use of the information to criminally investigate or prosecute any alcohol or drug abuse patient.[facility] HospitalIn the event this information is protected by the Federal Confidentiality of Alcohol and Drug Abuse Patient Records regulations: The Federal rules restrict any use of the information to criminally investigate or prosecute any alcohol or drug abuse patient.[facility] Reason for Visit (unrecogniz ed section and content) Reason Comments Appointment Specialty Diagnoses / Procedures Referred By Contac t Referred To Contact Diagnoses Procedures OFFICE VISIT, NEW PT., LEVEL 5 TC Vincent Dinh MD [address] [place] [address] [facility] [place] [address] Referral ID Status Reason Start Date Expiration Date Visits Requested Visits Authorized [id number] Authorized Patient Cleared - Qualified 100% FAS 4 03/03/2024 99 99 Reason Onset Date Comments Care 02/07/2024 Reason Comments US Specialty Diagnoses / Procedures Referred By Contac t Referred To Contact [facility] Diagnoses Encounter for supervision of other normal in first trimester 7 weeks gestation of with uncertain dates in first trimester Procedures NUCHAL TRANSLUCENCY WHI US NUCHAL TRANSLUCENCY 1ST GESTATION Shanna Sy APRN.[employer] [address] [place] [address] [facility] [address] [place] [address] Referral ID Status Reason Start Date Expiration Date V isits Requested Visits Authorized [id number] Closed Auto-Generate d Referral 12/28/2023 12/27/2024 1 1 Reason Onset Date Comments Care 03/06/2024 Reason Onset Date Comments Care 03/22/2024 Reason Onset Date Comments Care 04/02/2024 Specialty Diagnoses / Procedures Referred By Contac t Referred To Contact [facility] Diagnoses Encounter for supervision of other normal in second trimester Procedures OBSTETRIC ULTRASOUND WHI US PREG UTERUS AFTER 1ST TRIMEST GESTATION Lacey Ybarra APRN.[facility] [address] [place] [address] Phone: tel: fax: [address] [address] Referral ID Status Reason Start Date Expiration Date V isits Requested Visits Authorized [id number] Closed Auto-Generate d Referral 03/06/2024 03/06/2025 1 1 Reason Onset Date Comments Care 04/30/2024 Specialty Diagnoses / Procedures Referred By Contac t Referred To Contact [facility] Diagnoses Velamentous insertion 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 trimester ([facility]) Procedures OBSTETRIC ULTRASOUND WHI OBSTETRIC ULTRASOUND WHI US PREG UTERUS AFTER 1ST TRIMEST GESTATION Madelyn Jacques MD [address] [place] [address] Phone: tel: fax: [address] [address] Referral ID Status Reason Start Date Expiration Date V isits Requested Visits Authorized [id number] Closed Auto-Generate d Referral 04/30/2024 04/30/2025 1 1 Reason Onset Date Comments Care 05/20/2024 Reason Onset Date Comments Care 06/03/2024 Specialty Diagnoses / Procedures Referred By Contac t Referred To Contact [facility] Diagnoses 28 weeks gestation of ([facility]) Velamentous insertion of umbilical cord, antepartum ([facility]) Procedures OBSTETRIC ULTRASOUND WHI US PREG UTERUS AFTER 1ST TRIMEST GESTATION Virginia Valdovinos MD [address] [place] [address] Phone: tel: fax: [facility] [place] [address] [place] [address] Referral ID Status Reason Start Date Expiration Date V isits Requested Visits Authorized [id number] Closed Auto-Generate d Referral 05/20/2024 05/20/2025 2 1 Reason Onset Date Comments Care 06/17/2024 Reason Comments Breast pump Reason Onset Date Comments Care 07/01/2024 Reason Onset Date Comments Care 07/16/2024 Reason Onset Date Comments Care 07/22/2024 Reason Onset Date Comments Care 07/29/2024 Reason Onset Date Comments Population Health Navigation Outreach 07/31/2024 Ob/peds Care Teams (unrecognized sec tion and content) Policy Loan Calculator Relationship Specialty Start Date End Date Karina Nagy MD [address] [place] [address] PCP - General Pediatrics 08/02/13 Policy Loan Calculator Relationship Specialty Start Date End Date Kairna Nagy MD [address] [place] [address] PCP - General Pediatrics 08/02/13 Policy Loan Calculator Relationship Specialty Start Date End Date Karina Nagy MD [address] [place] [address] PCP - General Pediatrics 08/02/13 Policy Loan Calculator Relationship Specialty Start Date End Date Karina Nagy MD [address] [place] [address] PCP - General Pediatrics 08/02/13 Policy Loan Calculator Relationship Specialty Start Date End Date Karina Nagy MD [address] [place] [address] PCP - General Pediatrics 08/02/13 Policy Loan Calculator Relationship Specialty Start Date End Date Karina Nagy MD [address] [place] [address] PCP - General Pediatrics 08/02/13 Policy Loan Calculator Relationship Specialty Start Date End Date Karina Nagy MD [address] [place] [address] PCP - General Pediatrics 08/02/13 Policy Loan Calculator Relationship Specialty Start Date End Date Karina Nagy MD [address] [place] [address] PCP - General Pediatrics 08/02/13 Policy Loan Calculator Relationship Specialty Start Date End Date Karina Nagy MD [address] [place] [address] PCP - General Pediatrics 08/02/13 Policy Loan Calculator Relationship Specialty Start Date End Date Karina Nagy MD [address] [place] [address] PCP - General Pediatrics 08/02/13 Policy Loan Calculator Relationship Specialty Start Date End Date Karina Nagy MD [address] [place] [address] PCP - General Pediatrics 08/02/13 Policy Loan Calculator Relationship Specialty Start Date End Date Karina Nagy MD [address] [place] [address] PCP - General Pediatrics 08/02/13 Policy Loan Calculator Relationship Specialty Start Date End Date Karina Nagy MD [address] [place] [address] PCP - General Pediatrics 08/02/13 Policy Loan Calculator Relationship Specialty Start Date End Date Karina Nagy MD [address] [place] [address] PCP - General Pediatrics 08/02/13 Policy Loan Calculator Relationship Specialty Start Date End Date Karina Nagy MD [address] [place] [address] PCP - General Pediatrics 08/02/13 Policy Loan Calculator Relationship Specialty Start Date End Date Karina Nagy MD [address] [place] [address] PCP - General Pediatrics 08/02/13 FOR RECORDS PERTAINING TO PATIENTS WHO ARE OR HAVE BEEN ENROLLED IN A CHEMICAL DEPENDENCY/SUBSTANCEABUSE PROGRAM, SOME INFORMATION MAY BE OMITTED. This clinical summary was aggregated from multiple sources. Caution should be exercised in using it in the provision of clinical care. This summary normalizes information from multiple sources, and as a consequence, information in this document may materially change the coding, format and clinical context of patient data. In addition, data may be omitted in some cases. CLINICAL DECISIONS SHOULD BE BASED ON THE PRIMARY CLINICAL RECORDS. [facility] [employer] [facility]. provides no warranty or guarantee of the accuracy or completeness of information in this document.
[2024-08-05] MEDS: Lactated Ringers 1,000 ML 50 ML IV (07:35)
[2024-08-05 07:58] LABS: Absolute Lymphocyte Count 2.25 X10^3/uL (0.83-4.51); Absolute Neutrophil Count 6.6 X10^3/uL (2.0-7.7); Basophil# 0.05 X10^3/uL; Basophil% 0.5 % (0-1); Eosinophil# 0.07 X10^3/uL; Eosinophils% 0.7 % (0-5); Hematocrit 33.1 % (37-47); Hemoglobin 11.7 g/dL (12.0-15.0); Lymphocyte # 2.25 X10^3/ul (0.83-4.51); Mean Corp Hgb Conc 35.3 g/dL (32-36); Mean Corpuscular Hgb 31.7 pg (27.0-32.0); Mean Corpuscular Volume 89.7 fL (81-99); Mean Platelet Vol. 10.3 fl (6.2-12.0); Monocyte# 0.66 X10^3/uL; Monocyte% 6.7 % (0-10); NRBC Flagged by Analyzer 0 % (0-5); Neutrophil # 6.61 X10^3/uL (2.7-7.7); Neutrophil % 67.7 % (47-70); Platelet Count 333 K/mm3 (150-450); RBC Distribution Width SD 42.4 fl (35.1-43.9); Red Blood Count 3.69 M/mm3 (4.2-5.4); White Blood Count 9.8 K/mm3 (4.4-11.0)
[2024-08-05] MEDS: Oxytocin 15 Units/NS 250ml 15 UNITS/250 ML IV.SOLN 2 UNITS IV (08:02)
--- NOTE | 2024-08-05 08:31 | HP.PCM.OB_ITS ---
HPI - General General Date of Admission: 08/05/24 Date of Service: 08/05/24 Chief Complaint: IOL HPI Narrative MAURICIO OLIVER, is a 29 F who presents for scheduled IOL. No complaints. No ctx, vb, lof. Good FM PFSH PFSH Medical History (Updated 08/05/24 @ 08:[address] Charity Valdovinos, DO) Depression Anxiety Home Medications ?Medication ?Instructions ?Recorded ?Last Taken ?Type qksogvfu-pov-Ia-FA 1 mg 1 tab PO DAILY pregna ncy 11/27/20 08/02/24 History tablet Allergy/AdvReac Type Severity Reaction Status Date / Time No Known Allergies Allergy Verified 08/05/24 07:30 Surgical History (Updated 08/05/24 @ 07:55 by Estefany Miller) History of surgery History of surgery Social History Smoking Status: Former smoker History Elective abortions Hx Para 1 Spontaneous abortions Hx # Term Pregnancies Ectopic pregnancies Hx # Pregnancies Multiple births # of living children NST FHR Rate Baby A FHR Category:: Category I Vital Signs Vital Signs Vital Signs: 08/05/24 07:26 08/05/24 07:26 08/05/24 07:26 Temperature 99.4 F H Temperature Source Temporal Pulse Rate Respiratory Rate 16 Blood Pressure BP Systolic BP Diastolic Pulse Ox 08/05/24 07:42 08/05/24 07:42 08/05/24 07:42 Temperature Temperature Source Pulse Rate 99 Respiratory Rate Blood Pressure 115/74 BP Systolic 115 BP Diastolic 74 Pulse Ox 97 08/05/24 07:42 08/05/24 07:42 08/05/24 07:42 Temperature 99.4 F H Temperature Source Temporal Pulse Rate Respiratory Rate 16 Blood Pressure BP Systolic BP Diastolic Pulse Ox 08/05/24 08:05 08/05/24 08:05 08/05/24 08:05 Temperature Temperature Source Temporal Pulse Rate 106 H Respiratory Rate Blood Pressure 120/74 BP Systolic 120 BP Diastolic 74 Pulse Ox 08/05/24 08:05 08/05/24 08:05 Temperature 98.3 F Temperature Source Pulse Rate Respiratory Rate 16 Blood Pressure BP Systolic BP Diastolic Pulse Ox Weight Weight: 183 lb 8 oz Body Mass Index (BMI) 29.6 Physical Exam Const alert and no apparent distress General Appearance: comfortable Labs Labs Labs: Blood Type A POSITIVE Antibody Screen NEGATIVE Hct 33.1 % (37-47) L Hgb 11.7 g/dL (12.0-15.0) L Syphilis Total Ab Non-reactive Rubella IgG Antibody Equiv (Nonreactive) Hep Bs Antigen Non-Reactive (Nonreactive) Hepatitis C Antibody Non-Reactive (Nonreactive) Chlamydia DNA (LUIS ALBERTO) Negative (Negative) N.gonorrhoeae DNA (LUIS ALBERTO) Negative (Negative) HIV 1&2 Antibody Non-Reactive (Nonreactive) Glucose 1 Hr 50 gm 110 mg/dL (70-140) Assessment & Plan (1) 39 weeks gestation of : (2) Elective induction of labor planned: PLAN: Admit for scheduled elective IOL. Cvx 3 cm on admission per RN. GBS negative. Pitocin per protocol. Patient plans epidural for pain control. Pelvis adequate and expected EFW 3231 grams at 36 week gestation. (3) Velamentous insertion of umbilical cord:
[2024-08-05 08:41] LABS: Syphilis Antibodies Nonreactive (Nonreactive)
[2024-08-05] MEDS: Lactated Ringers 1,000 ML 999 ML IV (09:40)
[2024-08-05] MEDS: fentaNYL-bupivacaine (epidural) 100 ML BAG EPIDURAL ×2 (10:35→15:11)
[2024-08-05] MEDS: Ondansetron 4 MG/2 ML Vial IV (12:04)
--- NOTE | 2024-08-05 12:30 | PCM.PN.BLA ---
Progress Note Patient now comfortable with epidural. Assessment & Plan Assessment/Plan (1) Velamentous insertion of umbilical cord: (2) Elective induction of labor planned: (3) 39 weeks gestation of : PLAN: Cvx , head well applied. AROM performed in usual fashion with return of clear fluid. Cont current management. (4) Vaginal delivery:
[2024-08-05] MEDS: Lactated Ringers 1,000 ML 200 ML IV (15:29)
--- NOTE | 2024-08-05 18:25 | OB.VAGDELI_ITS ---
Assessment & Plan (1) Velamentous insertion of umbilical cord: (2) Elective induction of labor planned: (3) 39 weeks gestation of : (4) Vaginal delivery: Vaginal Delivery Maternal Presentation Maternal Presentation: Elective Induction Type of Induction: Pitocin and Amniotomy Vaginal Delivery Information Procedure Performed: Spontaneous Vaginal Delivery Surgeon/Practitioner: Charity Valdovinos Date of Procedure: 08/05/24 Pre-Procedure Diagnosis: 39 week gestation, velamentous cord insertion, elective IOL Post-Procedure Diagnosis: As above Type of anesthesia: Epidural Special Medications: None Estimated Blood Loss: 100 mL Findings Description of procedure: Patient complete and pushing. Head of delivered in ESTHER position over an intact perineum. The anterior shoulder was delivered with gentle downward traction followed by the posterior shoulder and body without any excessive traction, force or delay. A vigorous VMI was placed on maternal abdomen. The cord was clamped and cut after a 60 second delivery by FOB. Pitocin was initiated. The placenta delivered spontaneously and was noted to be intact with a velamentous cord insertion, and a 3VC. Placenta was sent to pathology for review. Fundus firm and bleeding minimal. No lacerations noted upon inspection. Sponge counts correct. A vaginal sweep was performed. Procedure findings: Vigorous VMI. Clear fluid. Velamentous cord insertion. Amniotic Membrane Rupture Type: Artificial Amniotic Fluid Description: Clear Placental Delivery Description: Spontaneous Specimen collected: No Cord Vessel Description: 3 Vessels Cord Entanglement: None A Gender: Male (1 minute): 8 (5 minute): 9 Delayed Cord Clamping: Yes Cloth Bleaching Range Operator Chief typesetting machine tender: No Post Vaginal Deli Medications given after delivery: IV Pitocin Episiotomy Description: None Laceration: None Complication Complications: No
[2024-08-05] MEDS: Oxytocin 15 Units/NS 250ml 15 UNITS/250 ML IV.SOLN 83 UNITS IV (19:10)
[2024-08-05] MEDS: Acetaminophen 500 MG Tablet 1000 MG PO (20:39)
--- NOTE | 2024-08-05 21:14 | PLAC_PTH ---
PATIENT: MAURICIO OLIVER LOC: [facility] U#:[id number] AGE/SX: 29/F ROOM: WP021 RE08/05/[address]: Dr. Charity Valdovinos DO : 1995 BED: 1 DIS: 08/06/2024 SPEC #: [id number] RECD: 08/05/24 22:06 STATUS: KAREEM MARILEE #: [id number] MARLA: 08/05/24 21:[address]: Charity Valdovinos DEPT: SURGICAL PATHOLOGY RECD BY: Torsten Marc ENTERED: 08/06/24 09:08 SP TYPE: PLACENTA OTHR DR: No Primary Care Phys Tissues: A - Placenta, NOS Procedures: Surgery Specimen Level V HEADER OPERATION: Delivery PRE-OP DIAGNOSIS: Velamentous cord TISSUE SUBMITTED: A- Placenta MICROSCOPIC DIAGNOSIS A. Placenta, vaginal delivery: * Velamentously inserted and trivascular umbilical cord with areas of vascular redundancy, consistent with false knots, and without active inflammation * Marginally inserted membranes without active inflammation * Mature (third trimester) placenta without active inflammation A. MICROSCOPIC DESCRIPTION Slides are reviewed. GROSS DESCRIPTION A.? Received in formalin labeled with the patient's name and date of is a 465 g, 17.9 x 17.3 x 2.8 cm slightly irregular, ovoid placental disc with a possible accessory lobe (individually measuring 3.8 x 2.8 x 0.9 cm).? The membranes are wolfe-pink and translucent, inserting marginally.? The trivascular, velamentously inserted, and 47.2 cm in length x 1.4-2.7 cm in diameter umbilical cord inserts into the membranes, approximately 6.2 cm from the disc edge; cord has multiple, possible false knots and engorged areas of congestion.? The surface is pink-purple and somewhat dull with arborizing vasculature.? The maternal surface is red-brown and grossly intact with patchy apparent calcifications (approximately 10-15%). Sectioning reveals red-brown, spongy parenchyma with focal fibrin (<10%). ?Retail Client Manager sections are submitted as follows: A1: Membrane rollA2: Umbilical cordA3: PlacentaA4: Placenta calcifications and fibrin FL 08/06/2024 CPT:53812
[2024-08-05 22:06] LABS: Pathology Specimen OB SEE PATHOLOGY REPORT
[2024-08-06] MEDS: Acetaminophen 500 MG Tablet 1000 MG PO ×2 (02:48→09:18)
[2024-08-06 04:06] VITALS: BP 111/66; PULSE 63; RESP 16; TEMP 36.7
[2024-08-06 09:01] VITALS: BP 117/62; PULSE 103; RESP 17
[2024-08-06 09:02] VITALS: BP 117/62; PULSE 103
--- NOTE | 2024-08-06 10:22 | PCM.PN.BLA ---
Progress Note pain well controlled, average lochia Physical Exam Const alert and no apparent distress Narrative: Fundus firm, below umbilicus. Assessment & Plan Assessment/Plan (1) Vaginal delivery: PLAN: PPD#1 s/p routine care doing well
[2024-08-06 12:31] VITALS: BP 109/60; PULSE 80; RESP 17
--- NOTE | 2024-08-06 13:11 | PCM.DC.SUM ---
Providers Date of Admission: 08/05/24 Primary Care Physician: Janett Primary Care Phys Reason For Visit: VAGINAL DELIVERY Diagnosis Discharge Diagnosis (1) Vaginal delivery: Status: Acute Code(s): O80 - Encounter for full-term uncomplicated delivery Plan: PPD#1 s/p routine care doing well Medications at Discharge Home Medications zyyyeyxv-lss-Wd-FA 1 mg tablet 1 tab PO DAILY 11/27/20 Hospital Course Operations None Procedures None Summary of Care Provided Minutes Spent on Discharge: 15 Hospital Course: Patient admitted 08/05 for induction of labor at 39 weeks. She had on 08/05 and desires d/c home on PPD #1 w/ routine instructions and f/u Weight / BMI Weight Weight: 83.234 kg Body Mass Index (BMI) 29.6 ABG / Lab / Microbiology Data 08/05/24 07:35 D/C Instructions May resume sexual activity in: 6 weeks DC O2, CPAP, BIPAP Needs Home O2 Discharge instructions: No Please Follow Up With: Charity Valdovinos DO When: Follow up with our office in 1 and 6 weeks or as needed. [phone] call or send a appening message Meaningful Use Info Meaningful Use Meaningful Use Diagnoses (Choose all that apply): None applicable Ischemic Stroke Statin Dosing Therapy Reference: STATIN DOSE THERAPY REFERENCE: * Patients > 75 years receive moderate or high dose statin therapy. * Patients 75 years or YOUNGER should receive HIGH intensity statin dose unless contraindicated. You will be required to document reason for non-treatment if statin daily dose does not meet guidelines. HIGH DOSE STATIN THERAPY DAILY Atorvastatin > than or = to 40 mg Rosuvastatin > than or = to 20 mg Amlodipine + Atorvastatin > than or = to 2.5/40 mg Ezetimibe + Simvastatin 10/80 mg Simvastatin 80mg Discharge Plan Admission Admit Date/Time: 08/05/24 07:15 Primary Reason for Your Visit: Vaginal delivery Attending Provider: Charity Valdovinos Primary Care Provider: Care Physician,Janett Primary Discharge Orders/Prescriptions Prescriptions: No Action xveasubp-tom-Gq-FA 1 mg Tablet 1 tab PO DAILY Referrals / Follow Up: Care Physician,Janett Primary [Primary Care Provider] - Disposition Disposition (needs filled in before D/C Order can be placed): Home, Self Care
[2024-08-06] MEDS: Ibuprofen 600 MG Tablet PO (14:42)
[2024-08-06 18:28] VITALS: BP 118/66; PULSE 92
[2024-08-06 18:29] VITALS: BP 118/66; PULSE 92; RESP 16
[2024-08-06] MEDS: MEASLES,MUMPS,RUBELLA VACC/PF 0.5 ML SC (19:50)
--- NOTE | 2024-08-07 17:19 | NURSING ---
Follow up phone call: Patient is doing well, bleeding is decreasing. No s+s of pp complications reported. Patient was but after a very hard night patient decided to switch to formula and is doing well and much better on formula. Patient was not interested in a appointment at this time to help resolve any issues. Patient was very satisfied with care received during stay.
--- NOTE | 2024-08-08 14:20 | CASEMGMT ---
Social Work Assessment Labor and Delivery Unit Patient Address: [address] [place] [address] Phone number: [phone] Date of Referral: 08/05/24 Time of Referral:? 0759 Referred By: Charity Valdovinos Date of Intervention: ??08/07/24 Time of Intervention:? 1045 Reason for Referral:? anxiety/ depression Sw completed chart review and acknowledges social work consult due to maternal mental health. Sw presented to bedside and introduced self to mother of baby (SINTIA Walters). Also present was maternal grandma, and ALFIE stated it was okay to complete assessment with grandma present. Sw explained reason for sw involvement and completed assessment. History obtained from: medical records, MOB Household composition: Currently residing in the family residence is ALFIE, father of baby (RAYO Berrios) and their three year old daughter- Marilee. [place] baby to be included in residence when ready for discharge. ALFIE denies any problems or concerns with housing, reporting their home is safe and secure. Patient's parent/guardian status:? ?ALFIE states that she and DEVAN have been together for 6 years after starting to date each other in high school. No concerns reported of domestic violence or intimate partner violence. baby is second child for parents together. Medical History: ?ALFIE is 29 year old female who is 2, para 1- now 2 following labor and delivery of . ALFIE received routine care during with [facility]. ALFIE presented to hospital for induction of labor and delivered baby via vaginal delivery on 08/05/24 at 39 weeks gestation. Baby boy, named Fredo Zuniga, was born weighing 8lb and had apgars of 8 and 9 at one and five minutes of life, respectfully. ALFIE is breast feeding and baby will be followed by Dr. Chandler. Educational Status:? Both parents graduated from high school, ALFIE also has her associates degree in real estate and DEVAN has some college but no degree. No problems with reading, learning or comprehension. Financial Status: Both parents are gainfully employed outside of the home. DEVAN wrks as a hubbard for a [employer]. ALFIE works in real estate. Supplies:??All necessary baby supplies obtained, including: car seat, safe sleep space, clothes, diapers and wipes. Childcare/Caregiver(s):?ALFIE states that she will be the primary caregiver to baby, along with FOB. Transportation:?? Both parents have their drivers license along with reliable means of transportation, no barriers. Programs/ Agencies Involved: ?MOB states that they are not connected to any community resources that provide them with financial assistance. ?? Children Services/Legal Issues:???No history of children services involvement, no issues or concerns warranting referral to be made. Behavioral Health Issues: ??Mental Health History:?ALFIE states that she has been diagnosed with anxiety and depression. MOB states that she did not struggle with any baby blues or depression after her daughter was born. MOB states that her anxiety is managed by using coping skills she has adapted over the years. MOB states that there is not something that typically triggers her anxiety, it is just day to day things. MOB denies requiring medication to help her manage her symptoms. ?? Substance Use History:?MOB denies substance use prior to and during . ? Family History:??ALFIE reports that her father had a substance use disorder and ultimately experienced a relapse that led to his passing a couple of years ago. MOB states that she was not close with her dad, and reports that he moved to [facility] several years ago. MOB states that due to his history of substance use she has never used drugs or alcohol. Sw encouraged ALFIE to remain substance free and to be mindful of her genetic disposition and offered condolences for her loss. ??? Drug Screens: ??No drug screens observed while completing chart review. Family/Social Stressors:? ALFIE denies any issues, concerns or stressors at this time. Support Systems: MOB identifies that FOB and maternal grandma are her biggest supports Depression/Shaken Baby/Safe Sleeping:? Sw educated MOB on signs and symptoms of baby blues and depression and anxiety. MOB states that she is mindful of what symptoms to be on the lookout for. MOB reports that if she were to struggle FOB would be able to recognize that and would know how to help and support her. MOB states that she has not engaged in counseling in the past, but is not opposed to getting connected to a mental health professional if she thought that would be helpful and if her family encouraged her to do so. Rosmery educated MOB on shaken baby prevention and ABCs of safe sleep, MOB expressed understanding. ASSESSMENT:? MOB and baby admitted following labor and delivery. MOB with mental health history positive for anxiety and depression. MOB denies experiencing any baby blues or symptoms after her daughter was born. MOB reports at this time to feeling good, and denies any anxiety, depression or significant emotions. MOB reports to feeling a bansal/ connection with baby and has felt a light heartedness since he has been born. MOB does recognize that she was more anxious the past couple of weeks/ days leading up to delivery, because her first baby was born a couple of weeks early and she just anticipated the same would be for this delivery, and when she went past 38 weeks she started to get discouraged. MOB states that now that baby is here she is happy and is thankful he and she are healthy. MOB was observed laying in bed and although appeared sleepy, she was welcoming of sw and engaged pleasantly in conversation. Maternal grandma was sitting at bedside and was holding baby in loving manner. MOB was talkative and conversation flowed naturally. MOB reports to having all necessary things for baby and natural supports in place that she feels comfortable talking to. PLAN:? No other services requested or indicated. MOB and baby to be discharged when medically ready. Parents were provided literature regarding: signs and symptoms of baby blues and mood and anxiety disorders, Help Me Grow, shaken baby prevention, ABCs of safe sleep and a list of county resources that are available for them should any needs present themselves. Trip Bertrand, SIX COLOR PRESS OPERATOR, HOUSEKEEPER HEAD
== END 2024-08-06 20:31 | disposition home or self-care (01) | DRG 807 ==
PROVIDERS: Admitting Provider Obstetrics & Gynecology; Visit Provider Obstetrics & Gynecology
DX: O43.123 Velamentous insertion of umbilical cord, third trimester (principal); Z37.0 Single live birth; Z3A.39 39 weeks gestation of pregnancy; Z87.891 Personal history of nicotine dependence
CPT/HCPCS: 59025; 59050; 85025; 86780; 86850; 86900; 86901; 88307; 99221; G0378; J2405